=== PATIENT | male | born 1960 | race Caucasian/White ===

== ENCOUNTER 2019-11-07 09:55 | Inpatient (IN) | payer MEDICARE, MEDICAID, SELFPAY ==
--- NOTE | 2019-11-02 10:35 | ANES.PREANES ---
Pre-Anesthetic Assessment Pre-Anesthetic Assessment: Height/Weight: Height 1.65 m Weight 54.431 kg Proposed Procedure: Operation Date: 11/07/19 08:50 Proposed Procedures p Laparoscopic Sigmoidectomy poss open poss Colstomy(Not Applicable) - Shaun Argueta MD s Flex Sigmoidoscopy(Not Applicable) - Shaun Argueta MD Social: Social History: No alcohol and No tobacco Exam: Pre-Anes Outpt Exam: alert, oriented x 3, clear to auscultation bilaterally and regular rate & rhythm Airway: Submandibular: WNL Cervical ROM: WNL MP: 2 Dentition: Full History/ROS: No significant history except as noted Pulmonary: Pulmonary: None reported CV/HEM: CV/HEM: None reported : : None reported Hepatic: Hepatic: None reported GI: GI: None reported Metabolic: Metabolic: None reported Musc/skel: Musc/skel: OA/DJD Neuropsych: Neuropsych: None reported Anesthetic Plan: ASA status: II Anesthesia: Anesthesia Evaluation and MAC Risk of > 500 ml blood loss (7ml/kg in children): Yes, adequate IV access and fluids planned PFSH Anesthesia PFSH: Social History (Updated 11/02/19 @ 09:45 by Adele Jolly) Smoking and tobacco status: never smoked Alcohol intake: never Substance/Drug Use: never Caregiver/support person: Yes (guardian is Gunjan Reynoso (mother)) Lives independently: No Data Anesthesia Cardiac Studies: No Data to Display
[2019-11-07] VITALS (24 sets, daily range): BP systolic 133–196; BP diastolic 63–106; PULSE 58–81; RESP 12–20; TEMP 36.6–37.2; O2SAT 91–100
[2019-11-07] MEDS: sodium chloride 0.9% 1,000 ML 30 ML IV (07:58)
[2019-11-07] MEDS: heparin 5,000 unit/mL INJ 1 mL 2000 UNIT SUBCUT (08:09)
--- NOTE | 2019-11-07 08:24 | PM.HPUD ---
H&P update H&P Update: DATE OF SURGERY/PROCEDURE: 11/07/19 DATE H&P PERFORMED: 10/20/19 H&P UPDATE INFORMATION: H&P completed within last 30 days and No changes to prior documentation PREOP DIAGNOSIS: Sigmoid colon stricture PRIMARY INDICATION FOR PROCEDURE: Sigmoid colon stricture concerning for neoplasia PLANNED PROCEDURE: Operation Date: 11/07/19 08:20 Proposed Procedures p Laparoscopic Sigmoidectomy poss open poss Colstomy(Not Applicable) - Shaun Argueta MD s Flex Sigmoidoscopy(Not Applicable) - Shaun Argueta MD Full H&P Medications/Allergies: Current Medications: Current Medications Generic Name Dose Route Start Last Admin Trade Name Freq PRN Reason Stop Dose Admin Sodium Chloride 1,000 mls @ 30 ml s/hr 11/07/19 07:30 11/07/19 07:58 Sodium Chloride 0.9% IV 11/08/19 07:29 30 mls/hr .Q24H BENJAMIN Administration Perinent History: Social History: Social History Smoking and tobacco status: never smoked Alcohol intake: never Substance/Drug Use: never Caregiver/support person: Yes (guardian is Gunjan Reynoso (mother)) Lives independently: No
[2019-11-07] MEDS: lidocaine 2% INJ 20 mL INJECTION (09:40)
[2019-11-07 10:49] LABS: Basophils % 0.4 %; Eosinophils # 0.1 10^3/uL (0.0-0.8); Hematocrit 45.3 % (42.0-52.0); Lymphocytes # 1.2 10^3/uL (0.8-4.8); Lymphocytes % 16.9 %; Mean Corpuscular HGB Conc 33.1 g/dL (30.0-36.0); Mean Corpuscular Hemoglobin 32.5 pg (28.0-34.0); Mean Corpuscular Volume 98.1 fL (80-94); Mean Platelet Volume 10.8 fL (7.4-10.4); Monocytes # 0.5 10^3/uL (0.2-0.9); Monocytes % 6.6 %; Neutrophils # 5.1 10^3/uL (1.8-7.7); Neutrophils % 73.8 %; Nucleated Red Blood Cells % 0 %; Platelet Count 200 10^3/cmm (130-400); Red Blood Count 4.62 10^6/uL (4.1-5.3); Red Cell Distribution Width 12.5 % (12.1-15.1); White Blood Count 6.9 10^3/uL (4.0-10.0)
[2019-11-07 11:02] LABS: Anion Gap 13.5 (5-19); Blood Urea Nitrogen 13 mg/dL (6-20); Carbon Dioxide 24 mmol/L (22-29); Chloride 104 mmol/L (98-107); Glomerular Filtration Rate 99.3 mL/min (90-130); Glucose 88 mg/dL (74-109); Potassium 3.5 mmol/L (3.5-5.1); Sodium 138 mmol/L (136-145)
--- NOTE | 2019-11-07 12:17 | P.OP_ITS ---
Operative Report Date of procedure: 11/09/19 Preop Diagnosis: Rectosigmoid stricture Post-op diagnosis: same Post-op Findings: Desmoplastic reaction at the left lateral pelvic wall with the rectosigmoid segment Procedure Done: Laparoscopic sigmoid colectomy with colorectal anastomosis Bilateral tap block Specimens removed/disposition: 1-sigmoid colon suture uyen proximal 2-staple line 3-proximal donut 4-distal donut Surgeon: Shaun Argueta Pipelines Supervisor: Alicia Forbes Anesthesia: general (MULTIMEDIA PROJECT MANAGER [place]/Smart), other (Tap block) and none Estimated blood loss (mL): 20 IV fluids (mL): 1,200 Complications: No immediate complications Condition: stable Disposition: floor Brief History: This is a pleasant 59 years old gentleman with history of stricture of the sigmoid colon, different attempts with endoscopy were done were not successful, barium enema was done and showed a stricture neoplastic component cannot be ruled out. After thorough history physical examination and reviewing the chart and images with my personal interpretation further counseling the patient and his legal guardians,agreed to proceed with laparoscopic possible open sigmoid colon resection possible colostomy. Informed consent per chart Procedure: The patient was brought to the operating room and was placed in a supine position on the operating room table.General endotracheal anesthesia was induced.Time-out was done verifying the patient's name/date of /planned procedure and destination after the procedure, all were in agreement. SCDs confirmed to be functioning, preoperative antibiotics administered per protocol, and beta pranay protocol was confirmed The patient was then moved to a modified lithotomy position. A Garcia catheter was inserted revealing clear urine. The abdomen was prepped and draped in a sterile fashion. Started by longitudinal skin incision supraumbilical using a Duong trocar technique safe entry to the abdominal cavity was achieved verified by using 10 mm zero degree laparoscopy, switched to a 30? scope, a 12 mm trocar was inserted at the right lower direct visualization,followed by a 5 mm trocar was inserted at the right upper quadrant under direct visualization and another 5 mm trocar was inserted to the left side of the abdomen under direct visualization. Intra-abdominal adhesions were adhesio lysed and the left lower abdominal quadrant. I started by mobilizing the sigmoid colon through the line of Toldt using the harmonic scalpel device and the left ureter was identified there was severe desmoplastic reaction between the sigmoid colon and left ureter, dissection was done safely without injuring the left ureter. A sizable phlegmon without any evidence of pus was identified of the severely scarred sigmoid colon portion. I was able to identify and skeletonized the DONNA pedicle and 45 mm vascular GI load was applied to secure the DONNA pedicle as a high ligation to maximize the lymph node basins of the specimen. At that point I continued dissection and mobilizing the left side of the colon up to the splenic flexure, followed by that via the 12 mm trocar introduced and endoscopic stapler device using green load 45 mm and was angled in a way to divide the junction between the distal sigmoid and the healthy upper rectum, division was achieved after 2 loads of the green load as the sigmoid colon was thick at this point. At that point I created transverse incision at the left 5 mm trocar site were and the wound protection device was placed, I was able to deliver the distal sigmoid colon Inclusive for the diseased Rectosigmoid colon segment. Attention was deviated at the proximal colon were the staple line was taken off with Oz scissors and sent also for pathology.The colon was sized and a size 25 EEA stapler was decided upon.The anvil was sewn into the proximal sigmoid with a running suture of 3-0 Prolene and 3-0 Vicryl ,that part of the colon was dropped back into the abdominal cavity,.And a good seal was obtained by the wound protection device.Gloves were changed,at this point additional mobilization was obtained due to the adherence of the omentum to the proximal part of the colon to allow tension-free anastomosis.at that point my partner scrubbed in(Surgeon Pipelines Supervisor Dr Allen) and The EEA was introduced through the rectum by him and the EEA was opened through the distal staple line. The anvil was connected and was slowly screwed down until the 2 limbs of bowel were contacting each other with good orientation of the mesentery of the colon. The Surrounding structures were again confirmed to be out of the area and the EEA was fired.The EEA was removed and 2 solid colonic rings of tissue were found in the EEA.Both doughnuts as well as the proximal sigmoid staple line were sent to pathology.The pelvis was again irrigated and while some irrigation was still in the pelvis a flexible sigmoidoscope was used to inflate the distal colon via the rectum, having placed a long blade [place] bowel was clamped proximal to the staple line on the sigmoid. The colon filled very well and no air leaks were seen under a level of saline in the pelvis. Further irrigation and suction of abdomen and pelvis . No ongoing bleeding or other problems were seen anywhere in the abdomen. At that point I did place a eterez-xb-rlaaf 2-0 silk suture that was placed laparoscopically, onto the anterior aspect of the anastomosis to invaginate part of the staple line. Bilateral TAP (transversus abdominous plain peripheral nerve block )block using Exparel 20 mL Exparel 40 ml Normal saline 20 ml bupivacaine 0.25% 30 mL on each side injected 20 mL injected the port sites A final look laparoscopy showed no injuries or bleeding All trocars were taken out under direct visualization and closure of the left lateral incision was done in 2 layers using PDS and Vicryl sutures, as well as the supraumbilical trocar site was closed by Vicryl sutures and all trocar sites were closed by skin geri, dressing was applied, all wounds were thoroughly irrigated prior to closure. Counts of sponges,needles and instruments were completed at the end of the procedure. Garcia catheter was left in place Patient tolerated the procedure well and got extubated and was taken to the PACU area. I was present for the whole entire procedure. Due to medical necessity. Pipelines Supervisor surgeon is required to assist in this procedure in the form of; Introduced the EEA via the anus, and assist in performing colorectal anastomosis, followed by introduction of the flex sigmoidoscopy to rule out potential leak or bleeding.
--- NOTE | 2019-11-07 12:32 | SUR.OPER ---
0942 - Pt's family - Michelle_ notified of surgery start.
--- NOTE | 2019-11-07 12:33 | SUR.OPER ---
Ezra Martinez updated on surgery progress and pt status via her cell phone.
--- NOTE | 2019-11-07 12:33 | SUR.OPER ---
Marcelino Martinez updated on surgery progress and pt status via her cell phone
[2019-11-07] MEDS: morphine 4 mg/mL SDV 1 mL 2 MG IVP ×7 (12:35→20:47)
--- NOTE | 2019-11-07 13:34 | SUR.PHASEI ---
1223- RECEIVED PATIENT IN PACU FROM OR VIA [facility]. RESP ARE EVEN AND NONLABORED. SAT 99% WITH SIMPLE MASK AT 6LPM. HE IS AROUSABLE BUT DROWSY. ACUTE ABDOMINAL SITES X4 ARE DRY AND INTACT. HE REPORTS PAIN, MEDICATED PER CONCHIS PERRY. PERES CATHETER IS PATENT AND DRAINING VIA GRAVITY CLEAR YELLOW URINE. DENIES NAUSEA. 1258- UPDATED FAMILY STABLE PT STATUS 1305- TRANSFERRED PATIENT FROM PACU TO . RESP ARE EVEN AND NONLABORED. SAT 96% WITH ROOM AIR. HE IS AWAKE AND ALERT, RESTING WITH EYES CLOSED. ACUTE ABDOMINAL SITES ARE DRY AND INTACT. HE REPORTS ABDOMINAL PAIN IS A LITTLE BIT . HE STATES HE WOULD LIKE TO SEE HIS MOM AND DAD. FAMILY AT THE BEDSIDE FOR TRANSFER. TRANSITION OF CARE TO [facility] WEATH[facility]. VSS. FAMILY IN SECOND FLOOR WAITING AREA.
[2019-11-07] MEDS: famotidine 20 mg/2 mL INJ IVP (13:35)
[2019-11-07] MEDS: sodium chloride 0.9% 1,000 ML 100 ML IV (13:35)
--- NOTE | 2019-11-07 14:47 | PM.PACU ---
PACU note Post-Anesthesia Exam: awake Disposition: back to floor
[2019-11-07] MEDS: heparin 5,000 unit/mL INJ 1 mL 3000 UNIT SUBCUT (20:47)
[2019-11-08] VITALS (8 sets, daily range): BP systolic 132–157; BP diastolic 56–79; PULSE 62–70; RESP 16–20; TEMP 36.5–37.4; O2SAT 93–98
[2019-11-08] MEDS: morphine 4 mg/mL SDV 1 mL 2 MG IVP ×5 (01:30→18:11)
[2019-11-08] MEDS: famotidine 20 mg/2 mL INJ IVP ×2 (01:31→13:25)
[2019-11-08] MEDS: sodium chloride 0.9% 1,000 ML 100 ML IV ×2 (02:00→09:07)
[2019-11-08 02:03] LABS: Hematocrit 37.4 % (42.0-52.0); Hemoglobin 12.4 g/dL (11.7-16.6)
[2019-11-08 02:29] LABS: Blood Urea Nitrogen 20 mg/dL (6-20); Calcium 8.8 mg/Dl (8.6-10.0); Carbon Dioxide 22 mmol/L (22-29); Chloride 107 mmol/L (98-107); Glomerular Filtration Rate 86.7 mL/min (90-130); Glucose 122 mg/dL (74-109); Sodium 139 mmol/L (136-145)
--- NOTE | 2019-11-08 05:41 | P.PN_ITS ---
Subjective Subjective: Interval history: Patient overall is doing Good urine output Did not pass gas yet Vitals/I&O/Wt Last Vital Signs Temp 98.1 F 11/08/19 04:31 Pulse 63 11/08/19 04:31 Resp 16 11/08/19 04:54 BP 132/71 11/08/19 04:31 Pulse Ox 98 11/08/19 04:31 11/07/19 11/07/19 11/08/19 14:59 22:59 06:59 Intake Total 250 / 250 50 / 300 1100 / 1400 Output Total 425 / 425 450 / 875 700 / 1575 Balance -175 / -175 -400 / -575 400 / -175 Physical Exam Const: COMMON NORMALS: no apparent distress GENERAL APPEARANCE: cooperative ORIENTATION/CONSCIOUSNESS: Yes awake, Yes oriented to person, Yes oriented to place and Yes oriented to time HENMT: COMMON NORMALS: normocephalic HEAD & SCALP: normocephalic Eye: COMMON NORMALS: PERRL and no scleral icterus PUPIL: Yes PERRL Chest: COMMONS NORMALS: inspection of chest normal Resp: COMMON NORMALS: normal respiratory effort and clear to auscultation bilaterally AUSCULTATION: clear to auscultation bilaterally Cardio: COMMON NORMALS: S1 normal heart sound and S2 normal heart sound; negative for no murmurs HEART SOUNDS: S1 normal and S2 normal GI: COMMON NORMALS: soft to palpation; negative for no hepatosplenomegaly INSPECTION: Yes normal to inspection AUSCULTATION: Yes normoactive bowel sounds PALPATION: Yes soft, No firm, Yes tender (Mild tenderness at the incision site), No guarding, No rigid and No no hepatosplenomegaly Neuro: SENSORIUM/ORIENTATION: Yes oriented to person, Yes oriented to place and Yes oriented to time Psych: COMMON NORMALS: mental status grossly normal Skin: COMMON NORMALS: no rashes or lesions noted GENERAL SKIN EXAM: no rashes or lesions noted Urinary Catheter Management^: Garcia: Cath Placed During This Visit: no A&P Assessment and plan (1) S/P partial colectomy: Patient is postoperative day 1 status post laparoscopic sigmoid colectomy We will start the patient on popsicle Incentive spirometer every hour Awaiting bowel functions once the patient starts passing gas we will start him slowly on clear liquid diet Ambulation 3-4 times out of bed Maintain Garcia catheter for extensive pelvic dissection and close monitoring of urine output Status: Acute Code(s): Z90.49 - Acquired absence of other specified parts of digestive tract Attestations Medical Necessity Statement*: Medical necessity care is expected to cross 2 midnights Coding Level of Care Code Acute Varnishing Unit Tool Setter for John Fwolga Exam Problem Focused Diagnoses S/P partial colectomy Z90.49
[2019-11-08] MEDS: heparin 5,000 unit/mL INJ 1 mL 3000 UNIT SUBCUT ×2 (09:07→22:03)
--- NOTE | 2019-11-08 10:56 | PC.CHAP ---
Pastoral Care Encounter/Spiritual Assessment Type of Contact [] Declined vending mechanic visit [] Patient/Family/Request visit [] Outpatient visit [] Follow-up visit [] Physician referral [] Code/Alert [x] Routine visit [] Staff referral [] Actively dying [] Patient sleeping [x] Family support [] [] Out of room [] Palliative care [] [] Receiving care in room [] Pre-surgical visit [] Trauma [] Long length of stay [] ICU visit [] Other: Relational/Emotional Strength [x] Patient feels connected with others/family/visitors/staff [] Distress [] Loneliness/isolation [] Abandonment Spirituality of Patient [x] Person of Siomara [x] Attends Confucianist of their [place] [x] Believes in Prayer [] Reads Bible or Methodist materials [] There are Spiritual issues to be addressed Tribal Council Member Interventions [x] Prayer [x] Active listening [x] Non-anxious presence [x] Spiritual/emotional support [] Crisis/trauma care [] Spiritual counseling [] Bereavement support [] Provided bereavement packet [] Provided Bible/devotional materials [] Provided toy/stuffed animal, coloring book to patient or family member [x] Completed spiritual assessment [] Provided Communion [] Anointing/[place] [] Salvation [] Other: Impact on Illness or Injury [] Angry [] Fearful [] Anxious [] Often cries [] Exhaustion [] Unable to work [] Unable to attend lutheran [] Unable to walk/stand [] Unable to read [] Unable to drive [] Unable to eat/drink [] Unable to sleep [] Unable to be with family [] Other: Summary patielnt felling better sence operation Time spent with patient 15 min
--- NOTE | 2019-11-08 19:06 | PC.NURSE ---
PATIENT AMBULATED 3 TIMES TODAY. TOLERATED WELL. ACTIVE BOWEL SOUNDS. NEGATIVE FOR GAS AT THIS TIME.
[2019-11-09] VITALS (7 sets, daily range): BP systolic 139–167; BP diastolic 55–79; PULSE 62–71; RESP 18–24; TEMP 36.2–37.2; O2SAT 92–97
[2019-11-09] MEDS: famotidine 20 mg/2 mL INJ IVP ×2 (01:44→13:53)
[2019-11-09 04:29] LABS: Anion Gap 13.7 (5-19); Blood Urea Nitrogen 14 mg/dL (6-20); Carbon Dioxide 26 mmol/L (22-29); Chloride 102 mmol/L (98-107); Glomerular Filtration Rate 138.4 mL/min (90-130); Glucose 110 mg/dL (74-109); Potassium 3.7 mmol/L (3.5-5.1); Sodium 138 mmol/L (136-145)
[2019-11-09 04:36] LABS: Basophils % 0.1 %; Eosinophils % 0.2 %; Hematocrit 37.5 % (42.0-52.0); Hemoglobin 12.3 g/dL (11.7-16.6); Lymphocytes # 0.8 10^3/uL (0.8-4.8); Lymphocytes % 8.8 %; Mean Corpuscular HGB Conc 32.8 g/dL (30.0-36.0); Mean Corpuscular Hemoglobin 30.8 pg (28.0-34.0); Mean Platelet Volume 10.6 fL (7.4-10.4); Monocytes # 0.9 10^3/uL (0.2-0.9); Monocytes % 10.4 %; Neutrophils # 7.1 10^3/uL (1.8-7.7); Neutrophils % 80.3 %; Nucleated Red Blood Cells % 0 %; Platelet Count 161 10^3/cmm (130-400); Red Blood Count 3.99 10^6/uL (4.1-5.3); Red Cell Distribution Width 12.5 % (12.1-15.1); White Blood Count 8.8 10^3/uL (4.0-10.0)
--- NOTE | 2019-11-09 06:11 | PM.PN ---
Subjective Subjective: Interval history: Patient overall is doing Good urine output Patient is passing gas Vitals/I&O/Wt Last Vital Signs Temp 97.9 F 11/09/19 04:13 Pulse 69 11/09/19 04:13 Resp 24 H 11/09/19 04:13 BP 139/77 11/09/19 04:13 Pulse Ox 95 11/09/19 04:13 11/08/19 11/08/19 11/09/19 14:59 22:59 06:59 Intake Total 811.667 / 811.667 200 / 1011.667 0 / 1011.667 Output Total 2300 / 2300 Balance 811.667 / 811.667 -2100 / -1288.333 0 / -1288.333 Physical Exam Const: COMMON NORMALS: no apparent distress GENERAL APPEARANCE: cooperative ORIENTATION/CONSCIOUSNESS: Yes awake, Yes oriented to person, Yes oriented to place and Yes oriented to time HENMT: COMMON NORMALS: normocephalic HEAD & SCALP: normocephalic Eye: COMMON NORMALS: PERRL and no scleral icterus PUPIL: Yes PERRL Chest: COMMONS NORMALS: inspection of chest normal Resp: COMMON NORMALS: normal respiratory effort and clear to auscultation bilaterally AUSCULTATION: clear to auscultation bilaterally Cardio: COMMON NORMALS: S1 normal heart sound and S2 normal heart sound; negative for no murmurs HEART SOUNDS: S1 normal and S2 normal GI: COMMON NORMALS: soft to palpation; negative for no hepatosplenomegaly INSPECTION: Yes normal to inspection AUSCULTATION: Yes normoactive bowel sounds PALPATION: Yes soft, No firm, Yes tender (Mild tenderness at the incision site), No guarding, No rigid, No no hepatosplenomegaly and Yes other (Dressing was taken down by me incisions are clean dry and intact and skin geri in place) : PENIS: other (Garcia catheter in place) Neuro: SENSORIUM/ORIENTATION: Yes oriented to person, Yes oriented to place and Yes oriented to time Psych: COMMON NORMALS: mental status grossly normal Skin: COMMON NORMALS: no rashes or lesions noted GENERAL SKIN EXAM: no rashes or lesions noted Urinary Catheter Management^: Garcia: Cath Placed During This Visit: no Data : 11/09/19 03:25 01/17/20 03:43 A&P Assessment and plan (1) S/P partial colectomy: Patient is postoperative day 2 status post laparoscopic sigmoid colectomy We will start the patient on clear liquid diet Incentive spirometer every hour DC Garcia cath Ambulation 3-4 times out of bed Status: Acute Code(s): Z90.49 - Acquired absence of other specified parts of digestive tract Attestations Medical Necessity Statement*: Medical necessity care is expected to cross 2 midnights Coding Level of Care Code Acute Operations And Maintenance Technician for John Fwd Exam Problem Focused Diagnoses S/P partial colectomy Z90.49
[2019-11-09] MEDS: sodium chloride 0.9% 1,000 ML 100 ML IV ×2 (06:46→16:29)
[2019-11-09] MEDS: heparin 5,000 unit/mL INJ 1 mL 3000 UNIT SUBCUT ×2 (09:43→21:15)
[2019-11-09 19:39] LABS: Anion Gap 13.7 (5-19); Blood Urea Nitrogen 12 mg/dL (6-20); Carbon Dioxide 27 mmol/L (22-29); Chloride 101 mmol/L (98-107); Glomerular Filtration Rate 170.8 mL/min (90-130); Glucose 139 mg/dL (74-109); Potassium 3.7 mmol/L (3.5-5.1); Sodium 138 mmol/L (136-145)
[2019-11-10] MEDS: famotidine 20 mg/2 mL INJ IVP (00:07)
[2019-11-10 01:13] VITALS: BP 155/77; PULSE 58; RESP 20; TEMP 36.9; O2SAT 96
[2019-11-10 03:50] VITALS: BP 138/79; PULSE 61; RESP 20; TEMP 36.9; O2SAT 97
[2019-11-10 04:13] LABS: Anion Gap 14.5 (5-19); Calcium 9.4 mg/Dl (8.6-10.0); Carbon Dioxide 27 mmol/L (22-29); Chloride 101 mmol/L (98-107); Glomerular Filtration Rate 170.8 mL/min (90-130); Glucose 125 mg/dL (74-109); Potassium 3.5 mmol/L (3.5-5.1); Sodium 139 mmol/L (136-145)
[2019-11-10 05:04] LABS: Blood Urea Nitrogen 12 mg/dL (6-20)
--- NOTE | 2019-11-10 06:47 | PM.PN ---
Subjective Subjective: Interval history: Patient overall is doing Good urine output Patient is passing gas and bowel movements Tolerating well p.o. Vitals/I&O/Wt Last Vital Signs Temp 98.4 F 11/10/19 03:50 Pulse 61 11/10/19 03:50 Resp 20 H 11/10/19 03:50 BP 138/79 11/10/19 03:50 Pulse Ox 97 11/10/19 03:50 11/09/19 11/09/19 11/10/19 14:59 22:59 06:59 Intake Total 1211.667 / 1211.667 0 / 1211.667 Output Total 750 / 750 575 / 1325 250 / 1575 Balance -750 / -750 636.667 / -113.333 -250 / -363.333 Physical Exam Const: COMMON NORMALS: no apparent distress GENERAL APPEARANCE: cooperative ORIENTATION/CONSCIOUSNESS: Yes awake, Yes oriented to person, Yes oriented to place and Yes oriented to time HENMT: COMMON NORMALS: normocephalic HEAD & SCALP: normocephalic Eye: COMMON NORMALS: PERRL and no scleral icterus PUPIL: Yes PERRL Chest: COMMONS NORMALS: inspection of chest normal Resp: COMMON NORMALS: normal respiratory effort and clear to auscultation bilaterally AUSCULTATION: clear to auscultation bilaterally Cardio: COMMON NORMALS: S1 normal heart sound and S2 normal heart sound; negative for no murmurs HEART SOUNDS: S1 normal and S2 normal GI: COMMON NORMALS: soft to palpation; negative for no hepatosplenomegaly INSPECTION: Yes normal to inspection AUSCULTATION: Yes normoactive bowel sounds PALPATION: Yes soft, No firm, Yes tender (Mild tenderness at the incision site), No guarding, No rigid, No no hepatosplenomegaly and Yes other ( incisions are clean dry and intact and skin geri in place) : PENIS: other (Garcia catheter in place) Neuro: SENSORIUM/ORIENTATION: Yes oriented to person, Yes oriented to place and Yes oriented to time Psych: COMMON NORMALS: mental status grossly normal Skin: COMMON NORMALS: no rashes or lesions noted GENERAL SKIN EXAM: no rashes or lesions noted Urinary Catheter Management^: Garcia: Cath Placed During This Visit: no Data : 11/09/19 03:25 01/17/20 03:43 A&P Assessment and plan (1) S/P partial colectomy: Patient is postoperative day 3 status post laparoscopic sigmoid colectomy Incentive spirometer every hour Ambulation 3-4 times out of bed Advance to full liquid diet and start protein shakes Patient continues to do well will plan to discharge home today Status: Acute Code(s): Z90.49 - Acquired absence of other specified parts of digestive tract Attestations Medical Necessity Statement*: Medical necessity care is expected to cross 2 midnights Coding Level of Care Code Acute Gas Meter Reader for John Fwolga Exam Problem Focused Diagnoses S/P partial colectomy Z90.49
[2019-11-10 07:05] VITALS: BP 159/87; PULSE 68; RESP 16; TEMP 36.3; O2SAT 95
[2019-11-10 07:12] VITALS: RESP 16
[2019-11-10] MEDS: heparin 5,000 unit/mL INJ 1 mL 3000 UNIT SUBCUT (08:09)
--- NOTE | 2019-11-10 10:12 | PC.SOCIAL ---
IMM Update Pg 2 of IMM given and explained to patient and family, who voiced understanding. Signed, dated, and timed, and placed in chart. Copy provided to patient.
[2019-11-10 11:12] VITALS: BP 150/93; PULSE 66; RESP 18; TEMP 36.6; O2SAT 97
--- NOTE | 2019-11-10 11:30 | PM.DCS ---
Discharge Providers Date of Admission: 11/07/19 09:55 Date of Discharge: 11/10/19 Attending Provider at Admission: Shaun Argueta MD Attending Provider at Discharge: Shaun Argueta MD Diagnoses at Discharge Discharge Diagnosis (1) S/P partial colectomy: Status: Resolved Problem details: We will plan to discharge patient home today Reason for Visit Reason for Visit: Reason For Visit: Stricture of Sigmoid Colon Hospital Course Discharge Summary: This is a pleasant 59 years old gentleman had developed sigmoid colon stricture, patient undergone uneventful laparoscopic sigmoid colectomy, continue to have stable vital signs and good urine output, started passing gas and was started on oral intake and tolerated it well. Overall patient is doing well, tolerating by mouth intake, stable vital signs, good urine output after taking the Garcia catheter out Patient is conscious alert oriented X3 BMI 20 Head and neck examination PERRLA no masses no cervical lymphadenopathy no jaundice Cardiac examination audible S1-S2 no murmurs no gallops no arrhythmias Chest is clear bilateral,abscence of Rhonchi or wheezes,no surgical emphysema Abdomen nontender except for mild tenderness at the incision site nondistended soft no organomegaly guarding or rigidity/no signs of peritonitis Incisions are clean dry and Extremities no cyanosis no clubbing no edema Plan to discharge patient home today and follow-up at the surgery office in a week Physical Exam Const: COMMON NORMALS: no apparent distress and oriented x3 GENERAL APPEARANCE: cooperative ORIENTATION/CONSCIOUSNESS: Yes awake, Yes oriented to person, Yes oriented to place and Yes oriented to time HENMT: COMMON NORMALS: normocephalic HEAD & SCALP: normocephalic Eye: COMMON NORMALS: PERRL and no scleral icterus PUPIL: Yes PERRL Lymph: LYMPHATIC: no lymphadenopathy noted Chest: COMMONS NORMALS: inspection of chest normal Resp: COMMON NORMALS: normal respiratory effort and clear to auscultation bilaterally AUSCULTATION: clear to auscultation bilaterally Cardio: COMMON NORMALS: S1 normal heart sound and S2 normal heart sound; negative for no murmurs HEART SOUNDS: S1 normal and S2 normal GI: COMMON NORMALS: soft to palpation; negative for no hepatosplenomegaly INSPECTION: Yes normal to inspection PALPATION: Yes soft, No firm, Yes tender (Mild tenderness at the incision sites), No guarding, No rigid and No no hepatosplenomegaly Neuro: COMMON NORMALS: oriented x3 SENSORIUM/ORIENTATION: Yes oriented to person, Yes oriented to place and Yes oriented to time Psych: COMMON NORMALS: mental status grossly normal Skin: COMMON NORMALS: no rashes or lesions noted GENERAL SKIN EXAM: no rashes or lesions noted Urinary Catheter Management^: Garcia: Cath Placed During This Visit: no Discharge Data Data Completed and Pending: Completed Studies During Hospitalization Category Date Time Status Pathology: Surgic al [PTH] Routine Pth 11/07/19 12:08 Completed Pending at discharge Category Date Time Status ES surgery / GI i mages Routine Exams 11/07/19 07:53 Taken Labs from last 24 hours 11/10/19 11/09/19 03:43 19:20 Sodium 139 138 Potassium 3.5 3.7 Chloride 101 101 Carbon Dioxide 27 27 Anion Gap 14.5 13.7 BUN 12 12 Creatinine 0.5 L 0.5 L GFR Calculation 170.8 H 170.8 H Glucose 125 H 139 H Calcium 9.4 9.0 Vitals: Last Vital Signs Temp 97.4 F L 11/10/19 07:05 Pulse 68 11/10/19 07:05 Resp 16 11/10/19 07:12 BP 159/87 11/10/19 07:05 Pulse Ox 95 11/10/19 07:05 Discharge Plan Discharge Patient Disposition: Home, Self-Care Condition: Stable Prescriptions: [place] 5-325 mg tablet 1 tab PO Q6H PRN (Reason: pain) Qty: 28 RF: 0 Continued cyanocobalamin (vitamin B-12) [Vitamin B-12] 1,000 mcg Tablet 1,000 mcg PO DAILY RF: 0 tamsulosin 0.4 mg Capsule 0.4 mg PO DAILY RF: 0 pantoprazole 40 mg tablet,delayed release (DR/EC) 40 mg PO DAILY RF: 0 cholecalciferol (vitamin D3) [Vitamin D3] 1,000 unit Capsule 1,000 unit PO DAILY RF: 0 Discharge Orders: Discharge Order (Routine); Ordered 11/10/19 Ordered By: Shaun Argueta Referrals: Shaun Argueta MD [Physician] - 11/16/19 9:30 am () Discharge Diet: Advance as tolerated Activity Restrictions/Additional Instructions: 1. Patient can shower after 48 hours from surgery 2. Keep incisions clean, skin geri will be removed at the next office visit 3. Advance diet as tolerated, avoid constipation, Metamucil twice daily as needed 4. Do lift more than 5 pounds first 2 weeks after surgery and not more than 25 pounds 6 to 8 weeks after surgery. 5. Do not operate heavy machinery or drive while using pain medications. 6. Advised to return to ER or contact my office if there are any signs of infection like, increasing pain, fevers, chills, redness or drainage of pus. Discharge Attestations Time Spent in Discharge Care*: less than 30 min Quality Metrics Clinical Quality Measures During this hospital stay, did patient experience: None Coding Level of Care Code Acute Application Integrator for Chg Fwd Exam Problem Focused Diagnoses S/P partial colectomy Z90.49 Time Spent (min) 10
[2019-11-10 11:35] VITALS: PULSE 81; RESP 16; TEMP 36.3; O2SAT 95
== END 2019-11-10 12:21 | disposition home or self-care (01) | DRG 331 ==
LOC: MEDSURG 09:55
PROVIDERS: Nurse Anesthetist, Certified Registered; Admitting Provider Surgery; Family Provider Nurse Practitioner; Visit Provider Surgery
PROC: 0DTN4ZZ Resection of Sigmoid Colon, Percutaneous Endoscopic Approach (ICD-10-PCS; CPT 44204; principal; 2019-11-07 08:10)
PROC: 0DJD8ZZ Inspection of Lower Intestinal Tract, Via Natural or Artificial Opening Endoscopic (ICD-10-PCS; CPT 45330; 2019-11-07 08:10)
DX: K56.699 Other intestinal obstruction unspecified as to partial versus complete obstruction (principal); K21.9 Gastro-esophageal reflux disease without esophagitis; R62.50 Unspecified lack of expected normal physiological development in childhood; Z79.899 Other long term (current) drug therapy
CPT/HCPCS: 12345; 36415; 80048; 85014; 85018; 85025; 88309; 96372; 96375; C9290; J0131; J0694; J1100; J1644; J2001; J2270; J2405; J2704; J2710; J2765; J3010; J3490; J7030

== ENCOUNTER → 2021-01-31 08:31 | Outpatient (BNVA) | payer MEDICARE, MEDICAID, SELFPAY | PROVIDERS: Family Provider Nurse Practitioner; Visit Provider Surgery | DX: Z20.822 Contact with and (suspected) exposure to COVID-19 (principal) | CPT/HCPCS: 87635 ==

== ENCOUNTER 2021-02-05 06:09 | Day surgery (SDC) | payer MEDICARE, MEDICAID, SELFPAY ==
[2021-02-03 09:25] VITALS: BMI 21.4
--- NOTE | 2021-02-05 06:29 | W.PM.OPSFHP ---
Same Day Surgery H&P Indication for Procedure/HPI DATE OF PROCEDURE: February 05, 2021 CHIEF COMPLAINT/INDICATIONFOR SURGICAL PROCEDURE: Screening colonoscopy PREOP DIAGNOSIS: Screening colonoscopy PLANNED PROCEDRUE: Operation Date: 02/05/21 07:30 Proposed Procedures p Colonoscopy 45812 K57.92(Not Applicable) - Shaun Argueta MD Patient comes today escorted by his father. Patient is a status post laparoscopic sigmoid colectomy and colorectal anastomosis for obstructive sigmoid colon pathology. Patient undergone surgery November 09, 2019 by me. Patient denies any signs or symptoms of bowel obstruction as of the obstructive nature of the colon patient never had a formal colonoscopy. 02/05/2021 interval history Patient comes today for screening colonoscopy ROS All systems have been reviewed negative except as per the above or per problem list. Medications/Allergies* Home Medications Medication Instructions Recorded Confirmed Type cholecalciferol (vitamin D3) 1,000 unit PO DAILY 11/02/19 02/03/21 History [Vitamin D3] cyanocobalamin (vitamin B-12) 1,000 mcg PO DAILY 11/02/19 02/03/21 History [Vitamin B-12] pantoprazole 40 mg PO DAILY 11/02/19 02/03/21 History tamsulosin 0.4 mg PO DAILY 11/02/19 02/03/21 History Allergies/Adverse Reactions Allergy/AdvReac Type Severity Reaction Status Date / Time No Known Allergies Allergy Verified 02/05/21 06:30 Pertinent History/Comorbid Conditions* Medical History (Updated 12/01/19 @ 07:54 by Shaun Argueta MD) Developmental delay Diverticulitis Gastroesophageal reflux Surgical History (Updated 11/17/19 @ 08:02 by Shaun Argueta MD) Sigmoid stricture Family History (Updated 11/16/19 @ 08:38 by Gerda Smith RN) Denies family history of Anesthesia complication Bleeding disorder Social History Smoking and tobacco status: never smoked Alcohol intake: never Caregiver/support person: Yes (guardian is Gunjan Reynoso (mother)) Lives independently: No Pertinent Exam Findings alert, oriented x 3, clear to auscultation bilaterally, regular rate & rhythm and procedure specific exam findings (Abdominal examination nontender nondistended soft) Recommendations Surgery/Procedure today (Screening colonoscopy) Other Plans: Plan of care; After thorough history and physical examination and reviewing the chart, plan to perform screening colonoscopy. I discussed with the patient in details the risks,benefits,alternatives and indications.The risk of aspiration, bleeding, soft tissue injury, perforation of the colon and other potential concomitant complications were explained to the patient in details,also the potential need for Laproscoy/Laparotomy to repair any related complications including but not limited to colectomy and or Closotomy.The patient understood this well and did agree to proceed. Rationale was carefully and clearly discussed with the patient.Appropriate informed consent have been reviewed and signed All questions have been answered and all concerns have been addressed to patient's satisfaction. Verbal and written Instructions were given to the patient for colonoscopy prep Coding Level of Care Code Acute Coppersmith Helper for John Patel
[2021-02-05 06:36] VITALS: BP 151/88; PULSE 62; RESP 18; TEMP 36.3; O2SAT 98
[2021-02-05] MEDS: sodium chloride 0.9% 1,000 ML 30 ML IV (06:58)
[2021-02-05 07:55] VITALS: BP 127/60; PULSE 61; RESP 16; TEMP 36.1; O2SAT 98
[2021-02-05 08:16] VITALS: BP 133/68; PULSE 53; RESP 18; O2SAT 99
--- NOTE | 2021-02-05 11:54 | ANES.PREANE2 ---
Pre-Anesthetic Assessment Pre-Anesthetic Assessment: Height/Weight: Height 1.65 m Weight 58.513 kg Temp Pulse Resp BP Pulse Ox 97 F L 53 L 18 133/68 99 02/05/21 07:55 02/05/21 08:16 02/05/21 08:16 02/05/21 08:16 02/05/21 08:16 Preop Diagnosis: Screening colonoscopy Proposed Procedure: Operation Date: 02/05/21 07:30 Proposed Procedures p Colonoscopy 68261 K57.92(Not Applicable) - Shaun Argueta MD Was Beta Josey taken within 24 hours: N/A Was Clonidine taken within 24 hours: N/A Last intake: Intake Last Liquid Date 02/04/21 Last Liquid Time 21:00 Last Solid Date 02/03/21 Last Solid Time 18:00 Social: Social History: No alcohol and No tobacco Exam: Pre-Anes Outpt Exam: alert, clear to auscultation bilaterally and regular rate & rhythm Airway: Submandibular: WNL Cervical ROM: WNL MP: 1 History/ROS: No significant complaints Pulmonary: Pulmonary: None reported CV/HEM: CV/HEM: None reported : : None reported Hepatic: Hepatic: None reported GI: GI: GERD Metabolic: Metabolic: None reported Musc/skel: Musc/skel: None reported Neuropsych: Comments: Cerebral Palsy Anesthetic Plan: ASA status: 3 Anesthesia: MAC Other: Consent given by Gunjan malin [facility] Anesthesia PFSH: Medical History Developmental delay Diverticulitis Gastroesophageal reflux Surgical History Sigmoid stricture Family History Denies family history of Anesthesia complication Bleeding disorder Social History Smoking and tobacco status: never smoked Alcohol intake: never Caregiver/support person: Yes (guardian is Gunjan Reynoso (mother)) Lives independently: No Data Anesthesia Cardiac Studies: No Data to Display
--- NOTE | 2021-02-05 11:57 | ANE.PACU2 ---
Inpatient post-anesthesia follow up: Airway intact: Yes Vital signs: Temperature 97 F Pulse Rate 53 Respiratory Rate 18 Blood Pressure 133/68 Pulse Oximetry 99 Oxygen Delivery Me thod Room Air Oxygen Flow Rate Fraction of Inspir ed Oxygen Hydration adequate: Yes Nausea and vomiting: No Pain level: 1 Mental status: Baseline
== END 2021-02-05 08:28 | disposition home or self-care (01) ==
PROVIDERS: PCP Family Medicine; Visit Provider Surgery
PROC: 0DJD8ZZ Inspection of Lower Intestinal Tract, Via Natural or Artificial Opening Endoscopic (ICD-10-PCS; CPT 45378; principal; 2021-02-05 07:30)
DX: Z12.11 Encounter for screening for malignant neoplasm of colon (principal); K57.30 Diverticulosis of large intestine without perforation or abscess without bleeding; R62.50 Unspecified lack of expected normal physiological development in childhood; K21.9 Gastro-esophageal reflux disease without esophagitis; G80.9 Cerebral palsy, unspecified
CPT/HCPCS: 45378; J2704; J7030

== ENCOUNTER 2021-07-24 11:18 | Outpatient (CLI) | payer MEDICARE, MEDICAID, SELFPAY ==
[2021-07-24] MEDS: iohexol 300 mg/mL 50 mL Btl PO (11:48)
[2021-07-24 12:32] LABS: Blood Urea Nitrogen 19 mg/dL (8-23)
[2021-07-24] MEDS: iohexol 300 mg/mL 100 mL Btl IV (13:02)
--- NOTE | 2021-07-24 13:30 | CT_ITS ---
WS: [id number] CT ABDOMEN PELVIS TECHNIQUE: Contrast-enhanced CT of the abdomen and pelvis with coronal and sagittal reformatted image s. CLINICAL INFORMATION: R19.7 - Diarrhea, unspecified COMPARISON: CT 6 and DLP: 903.[address] scans at [facility] use at least one of these dose optimization techniques: automated e xposure control; mA and/or kV adjustment per patient size (includes targeted exams where dose is matc hed to clinical indication); or iterative reconstruction. FINDINGS: Some images degraded by breathing motion artifact Evidence of prior partial sigmoidectomy.Mild diffuse wall thickening with submucosal enhancement invo lving the distal sigmoid colon extending to the rectum. Recommend correlation for distal colitis and proctitis. In addition, there is asymmetric nodular wall thickening involving the distal sigmoid colo n and rectum with associated luminal narrowing. Neoplasm is not excluded and recommend further evalua tion with colonoscopy/sigmoidoscopy. Diffuse fatty infiltration of the liver. Normal portal vein and splenic vein. Normal spleen. Normal G E junction. Emphysematous changes in the lung bases. Cavernous hemangioma in the dome of the liver measuring 2.0 cm unchanged from previous. Gallbladder i s contracted. Normal spleen. Adrenal glands are normal. Normal renal parenchymal enhancement. No hydr onephrosis. A few incidental renal cysts. Normal pancreas. Normal caliber abdominal aorta. Aortic ca lcification. Calcified enlarged prostate measuring 4.5 CM. Mild diffuse bladder wall thickening can be seen with b ladder outlet obstruction. Normal caliber abdominal aorta. No periaortic or peritoneal lymphadenopathy. No pelvic lymphadenopath y. No inguinal lymphadenopathy. Degenerative disc disease worse L4-L5 and L5-S1 with disc osteophyte complexes. Mild to moderate central canal stenosis L4-5. Lumbar curve. CT/CT abdomen pelvis w con* [id number] IMPRESSION: 1. Prior postoperative changes partial sigmoidectomy. 2. Mild diffuse wall thickening with submucosal enhancement involving the dist al sigmoid colon extending to the rectum. Recommend correlation for distal coli tis/proctitis. 3. In addition, areas of asymmetric nodular wall thickening involving the dist al sigmoid colon and rectum with associated rectal luminal narrowing. Neoplasm is not excluded and recommend further evaluation with colonoscopy/sigmoidoscopy . 4. Enlarged calcified prostate with evidence of bladder outlet obstruction. Re commend correlation PSA. 5. Mild diffuse fatty infiltration liver. 6. Stable 2 cm hemangioma in the dome of the liver. 7. Normal caliber abdominal aorta. 8. Moderate spondylitic changes lumbar spine with disc space narrowing worse a t L4-L5 and L5-S1.
== END 2021-07-24 11:19 | disposition home or self-care (01) ==
PROVIDERS: PCP Family Medicine; Visit Provider Surgery
DX: R19.7 Diarrhea, unspecified (principal); Z90.49 Acquired absence of other specified parts of digestive tract; D18.09 Hemangioma of other sites; N40.0 Benign prostatic hyperplasia without lower urinary tract symptoms; K76.0 Fatty (change of) liver, not elsewhere classified
CPT/HCPCS: 74177; 82565; 84520; Q9967

== ENCOUNTER → 2021-08-22 08:46 | Outpatient (BNVA) | payer MEDICARE, MEDICAID, SELFPAY | PROVIDERS: PCP Family Medicine; Visit Provider Surgery | DX: Z11.52 Encounter for screening for COVID-19 (principal); Z20.822 Contact with and (suspected) exposure to COVID-19 | CPT/HCPCS: 87635 ==

== ENCOUNTER 2021-08-27 07:04 | Day surgery (SDC) | payer MEDICARE, MEDICAID, SELFPAY ==
[2021-08-27 07:37] VITALS: BP 144/72; PULSE 70; RESP 18; TEMP 36.9; O2SAT 98
--- NOTE | 2021-08-27 07:41 | W.PM.OPSFHP ---
Same Day Surgery H&P Indication for Procedure/HPI DATE OF PROCEDURE: August 27, 2021 CHIEF COMPLAINT/INDICATIONFOR SURGICAL PROCEDURE: Bloated PREOP DIAGNOSIS: Diagnosed colonoscopy PLANNED PROCEDRUE: Operation Date: 08/27/21 08:30 Proposed Procedures p Colonoscopy 53883 R19.7(Not Applicable) - Shaun Argueta MD 07/17/2021 Patient comes today with concerns of anterior abdominal wall hernia. Patient is well-known to me as he did have a laparoscopic sigmoid colectomy back in November 07, 2019. And overall did well and had recent colonoscopy in January 2021 that showed scattered diverticuli without any other significant findings. Apparently patient's mom is concerned about a bulge of the patient's abdominal wall and patient comes today for further evaluation and there is history about potential significant change in bowel habits although the patient denies that except for some on and off diarrhea. Patient comes today escorted by his father and history is limited. Interim history 08/27/2021 Based on the abnormal findings of the CT scan and preceded by patient's history of bloating we will plan to perform a diagnostic colonoscopy today CT scan of the abdomen pelvis did show on 07/24/2021 1. Prior postoperative changes partial sigmoidectomy. 2. Mild diffuse wall thickening with submucosal enhancement involving the distal sigmoid colon extending to the rectum. Recommend correlation for distal colitis/proctitis. 3. In addition, areas of asymmetric nodular wall thickening involving the distal sigmoid colon and rectum with associated rectal luminal narrowing. Neoplasm is not excluded and recommend further evaluation with colonoscopy/sigmoidoscopy. 4. Enlarged calcified prostate with evidence of bladder outlet obstruction. Recommend correlation PSA. 5. Mild diffuse fatty infiltration liver. 6. Stable 2 cm hemangioma in the dome of the liver. 7. Normal caliber abdominal aorta. 8. Moderate spondylitic changes lumbar spine with disc space narrowing worse at L4-L5 and L5-S1. ROS All systems have been reviewed negative except as per the above or per problem list Medications/Allergies* Home Medications Medication Instructions Recorded Confirmed Type cholecalciferol (vitamin D3) 1,000 unit PO DAILY 11/02/19 08/22/21 History [Vitamin D3] cyanocobalamin (vitamin B-12) 1,000 mcg PO DAILY 11/02/19 08/22/21 History [Vitamin B-12] pantoprazole 40 mg PO DAILY 11/02/19 08/22/21 History tamsulosin 0.4 mg PO DAILY 11/02/19 08/22/21 History Allergies/Adverse Reactions Allergy/AdvReac Type Severity Reaction Status Date / Time No Known Allergies Allergy Verified 08/22/21 14:26 Pertinent History/Comorbid Conditions* Medical History (Updated 12/01/19 @ 07:54 by Shaun Argueta MD) Developmental delay Diverticulitis Gastroesophageal reflux Surgical History (Updated 11/17/19 @ 08:02 by Shaun Argueta MD) Sigmoid stricture Family History (Updated 11/16/19 @ 08:38 by Gerda Smith RN) Denies family history of Anesthesia complication Bleeding disorder Social History Smoking and tobacco status: never smoked Alcohol intake: never Caregiver/support person: Yes (guardian is Gunjan Reynoso (mother)) Lives independently: No Pertinent Exam Findings alert, oriented x 3, clear to auscultation bilaterally, regular rate & rhythm and procedure specific exam findings (Abdominal examination nontender nondistended soft) Recommendations Surgery/Procedure today (Colonoscopy with possible biopsy) Other Plans: Plan of care; After thorough history and physical examination and reviewing the chart, plan to perform diagnostic colonoscopy. I discussed with the patient in details the risks,benefits,alternatives and indications.The risk of aspiration, bleeding, soft tissue injury, perforation of the colon and other potential concomitant complications were explained to the patient in details,also the potential need for Laproscoy/Laparotomy to repair any related complications including but not limited to colectomy and or Closotomy.The patient understood this well and did agree to proceed. Rationale was carefully and clearly discussed with the patient.Appropriate informed consent have been reviewed and signed All questions have been answered and all concerns have been addressed to patient's satisfaction. Verbal and written Instructions were given to the patient for colonoscopy prep Coding Level of Care Code Acute Pasteurizing Machine Operator for John Patel
[2021-08-27] MEDS: sodium chloride 0.9% 1,000 ML 30 ML IV (07:52)
--- NOTE | 2021-08-27 08:25 | ANES.PREANE2 ---
Pre-Anesthetic Assessment Pre-Anesthetic Assessment: Height/Weight: Height 1.65 m Weight 54.431 kg Temp Pulse Resp BP Pulse Ox 98.4 F 70 18 144/72 98 08/27/21 07:37 08/27/21 07:37 08/27/21 07:37 08/27/21 07:37 08/27/21 07:37 Preop Diagnosis: Bloating and abnormal CT scan images Proposed Procedure: Operation Date: 08/27/21 08:30 Proposed Procedures p Colonoscopy 11566 R19.7(Not Applicable) - Shaun Argueta MD Was Beta Josey taken within 24 hours: N/A Was Clonidine taken within 24 hours: N/A Last intake: Intake Last Liquid Date 08/26/21 Last Liquid Time 21:00 Last Solid Date 08/25/21 Last Solid Time 12:00 Social: Social History: No alcohol and No tobacco Exam: Pre-Anes Outpt Exam: alert and oriented x 3 Airway: Submandibular: WNL Cervical ROM: WNL MP: 1 Dentition: Full History/ROS: No significant history except as noted Pulmonary: Pulmonary: None reported CV/HEM: CV/HEM: None reported : : None reported Hepatic: Hepatic: None reported GI: GI: None reported Metabolic: Metabolic: None reported Musc/skel: Musc/skel: None reported Neuropsych: Neuropsych: None reported Anesthetic Plan: ASA status: 2 Anesthesia: Anesthesia Evaluation and MAC Risk of > 500 ml blood loss (7ml/kg in children): No Meds/Allergies Current Medications: Current Medications Generic Name Dose Route Start Last Admin Trade Name Freq PRN Reason Stop Dose Admin Sodium Chloride 1,000 mls @ 30 ml s/hr 08/27/21 07:15 08/27/21 07:52 Sodium Chloride 0.9% IV 08/28/21 07:14 30 mls/hr .Q24H BENJAMIN Administration PFSH Anesthesia PFSH: Medical History Developmental delay Diverticulitis Gastroesophageal reflux Surgical History Sigmoid stricture Family History Denies family history of Anesthesia complication Bleeding disorder Social History Smoking and tobacco status: never smoked Alcohol intake: never Caregiver/support person: Yes (guardian is Gunjan Reynoso (mother)) Lives independently: No Data Anesthesia Cardiac Studies: No Data to Display
[2021-08-27 08:58] VITALS: BP 102/58; PULSE 55; RESP 16; TEMP 36.7; O2SAT 97
[2021-08-27 09:12] VITALS: BP 132/73; PULSE 67; RESP 16; O2SAT 95
--- NOTE | 2021-08-27 09:17 | PC.NURSE ---
Pt and father given discharge instructions including follow up appointment, informational pamphlets, and 360 Resolution clip card with MRI info and anatomical location of placement.
--- NOTE | 2021-08-27 14:30 | ANE.PACU2 ---
Inpatient post-anesthesia follow up: Airway intact: Yes Vital signs: Temperature 98.1 F Pulse Rate 67 Respiratory Rate 16 Blood Pressure 132/73 Pulse Oximetry 95 Oxygen Delivery Me thod Room Air Oxygen Flow Rate Fraction of Inspir ed Oxygen Hydration adequate: Yes Nausea and vomiting: No Pain level: 2 Mental status: Baseline
== END 2021-08-27 09:33 | disposition home or self-care (01) ==
PROVIDERS: PCP Family Medicine; Visit Provider Surgery
PROC: 0DJD8ZZ Inspection of Lower Intestinal Tract, Via Natural or Artificial Opening Endoscopic (ICD-10-PCS; CPT 45378; principal; 2021-08-27 08:30)
DX: R14.0 Abdominal distension (gaseous) (principal); D12.2 Benign neoplasm of ascending colon; K57.30 Diverticulosis of large intestine without perforation or abscess without bleeding; K21.9 Gastro-esophageal reflux disease without esophagitis; Z98.0 Intestinal bypass and anastomosis status; Z90.49 Acquired absence of other specified parts of digestive tract; Z87.19 Personal history of other diseases of the digestive system
CPT/HCPCS: 45385; 88305; 96360; J2704; J7030

== ENCOUNTER → 2022-03-11 08:45 | Outpatient (BNVA) | payer MEDICARE, MEDICAID, SELFPAY | PROVIDERS: PCP Family Medicine; Visit Provider Surgery | DX: R19.00 Intra-abdominal and pelvic swelling, mass and lump, unspecified site (principal) | CPT/HCPCS: 99213 ==

== ENCOUNTER → 2023-02-15 11:09 | Outpatient (BNVA) | payer MEDICARE, MEDICAID, SELFPAY | PROVIDERS: PCP Family Medicine; Visit Provider Family Medicine | DX: R19.00 Intra-abdominal and pelvic swelling, mass and lump, unspecified site (principal); R62.50 Unspecified lack of expected normal physiological development in childhood | CPT/HCPCS: 80053; 85025 ==

== ENCOUNTER → 2023-07-01 18:18 | Outpatient (BNVA) | payer MEDICARE, MEDICAID, SELFPAY | PROVIDERS: PCP Family Medicine; Visit Provider Emergency Medicine | DX: S63.250A Unspecified dislocation of right index finger, initial encounter (principal); M79.644 Pain in right finger(s); X58.XXXA Exposure to other specified factors, initial encounter | CPT/HCPCS: 73130 ==

== ENCOUNTER → 2024-07-10 11:00 | Outpatient (BNVA) | payer MEDICARE, MEDICAID, SELFPAY | PROVIDERS: PCP Family Medicine; Visit Provider Family Medicine | DX: Z12.5 Encounter for screening for malignant neoplasm of prostate (principal); Z13.6 Encounter for screening for cardiovascular disorders; R79.89 Other specified abnormal findings of blood chemistry; N40.1 Benign prostatic hyperplasia with lower urinary tract symptoms; N13.8 Other obstructive and reflux uropathy; K21.9 Gastro-esophageal reflux disease without esophagitis; K59.00 Constipation, unspecified; E55.9 Vitamin D deficiency, unspecified | CPT/HCPCS: 80053; 80061; 82306; 82607; 83735; 84443; 85025; G0103 ==

== ENCOUNTER 2025-05-12 18:36 | Emergency (ER) | payer MEDICARE, MEDICAID, SELFPAY ==
[2025-05-12 18:39] VITALS: BP 130/77; PULSE 60; RESP 16; TEMP 36.3; O2SAT 94; BMI 20.9
--- OUTSIDE RECORDS SUMMARY | 2025-05-12 18:49 | XMS_ITS | Clinical Summary ---
Author Organization [facility] Address [address] [place] [address] Care Team Providers Care Fitter Hand Name Role Phone Adan Garza MD Primary Care Provider [phone] Allergies No known active allergies Medications No known medications Active Problems Problem Noted Date Diagnosed Date History of intestinal obstruction 04/03/2021 Onychomycosis 08/01/2020 Vitamin D deficiency 08/01/2020 Chronic fatigue 08/01/2020 Benign prostatic hyperplasia with urinary freque ncy 05/06/2020 Gastroesophageal reflux disease 05/06/2020 Encounters Date Type Department Care Team Description 04/03/2025 Patient Outreach [facility] [address] [place] [address] Adan Garza MD Primary Care Outreach (PCP Attribution / New patient - Called patient's number to schedule appointment. Invalid number If patient returns call, please schedule with ADAN Black (who is listed by insurance as PCP) or APPs in that office or any [facility] Primary Care Physician. If they are not interested in establishing care with [facility], please ask them to call the number on the back of their insurance card to update their insurance plan with the correct PCP.) from Last 3 Months Immunizations Immunization Administration Dates Next Due (TDVAX)(7 YRS UP) TETANUS AN D DIPHTHERIA TOXOIDS, ADSORBED (2 LF OF TETANUS TOXOID AND 2 LF OF DIPHTHERIA TOXOID), 0.5ML (PF), IM 04/21/1996 INFLUENZA VACCINE QUADRIVALENT 6 MOS UP PF IM ,08/03/2019 Influenza Vaccine 18+ C.derived Pf Im 08/08/2018 Family History Medical History Relation Name Comments Cancer Brother Heart Disease Maternal Grandfather Diabetes Maternal Grandmother Stroke Maternal Grandmother Diabetes Mother Relation Name Status Comments Brother Maternal Grandfather Maternal Grandmother Mother Social History Tobacco Use Types Packs/Day Years Used Date Smoking Tobacco: Never Smokeless Tobacco: Never Tobacco Cessation:Counseling Given: No Alcohol Use Standard Drinks/Week Comments Never 0 (1 standard drink = 0.6 oz pur e alcohol) Sex and Gender Information Value Date Recorded Sex Assigned at Not on file Legal Sex Male 1:21 PM TOWEL HEMMER Gender Identity Not on file Sexual Orientation Not on file Last Filed Vital Signs Vital Sign Reading Time Taken Comments Blood Pressure 122/70 09/21/2022 9:03 AM TOWEL HEMMER Pulse 62 09/21/2022 9:03 AM TOWEL HEMMER Temperature 37.3 C (99.2 F) 09/21/2022 9:03 AM TOWEL HEMMER Respiratory Rate 18 08/01/2020 9:07 AM CDT Oxygen Saturation 94% 09/21/2022 9:03 AM TOWEL HEMMER Inhaled Oxygen Concentration - - Weight 57.5 kg (126 lb 12.8 oz) 09/21/2022 9:03 AM TOWEL HEMMER Height 165.1 cm (5' 5 ) 09/21/2022 9:03 AM TOWEL HEMMER Body Mass Index 21.1 09/21/2022 9:03 AM TOWEL HEMMER Plan of Treatment Health Maintenance Due Date Last Done Comments DTAP/TDAP/TD VACCINES (1 - Tdap) 04/22/1996 04/21/19 96 FIT-DNA Q 3 years 2006 FIT/FOBT Q 1 year 2006 Flex Sig/CT Colonography Q 5 years 2006 ZOSTER VACCINE (1 of 2) 2011 Medicare Advantage ([place]) Preventative Visit/Annual Wellness Visit 10/25/2024 09/21/2022 INFLUENZA VACCINE (#1) 2025 , 08/01/2020, 08/03/2019, Additional history exists COLORECTAL SCREENING 08/27/2031 08/27/2021, 02/05/2021, 02/05/2021 Colorectal Cancer Screening 08/27/2031 RSV VACCINE (60+ or ) (1 - 1-dose 75+ series) 2036 Procedures Procedure Name Priority Date/Time Associated Diagnosis Comments ENDOSCOPY, COLON, DIAGNOSTIC Routine 08/27/2021 from Last 3 Months or Most Recently Relevant to Health Maintenance Results * ENDOSCOPY, COLON, DIAGNOSTIC (08/27/2021) Adan Garza MD GI PROCEDURE ORDERABLES Edited Result - Final from Last 3 Months or Most Recently Relevant to Health Maintenance Insurance [facility] DUAL COMPLETE HMO DSNP [facility] [id number] MEDICAID [place] Care Teams Fitter Hand Relationship Specialty Start Date End Date Adan Garza MD [address] [place] [address] PCP - General Family Practice 09/10/20
--- OUTSIDE RECORDS SUMMARY | 2025-05-12 18:49 | XMS_ITS | Clinical Summary ---
Author Organization [facility] Address [address] [address] Care Team Providers Care Test Engineer Nuclear Equipment Name Role Phone Manny Garza MD Primary Care Provider [phone] Allergies No known active allergies Medications omeprazole (PriLOSEC) 20 mg Capsule, Delayed Release(E.C.)Ind ications:Gastroe sophageal reflux disease, esophagitis presence not specified Take 1 Capsule (20 mg) by mouth daily. 90 Capsule 3 05/06/2020 Active tamsulosin (FLOMAX) 0.4 mg capsuleIndicatio ns:Benign prostatic hyperplasia with urinary frequency Take 1 Capsule (0.4 mg) by mouth daily. 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 Gender Identity Not on file Sexual Orientation Not on file Last Filed Vital Signs Vital Sign Reading Time Taken Comments Blood Pressure 154/70 04/03/2021 9:15 AM CDT Pulse 51 04/03/2021 9:15 AM CDT Temperature 36.9 C (98.4 F) 04/03/2021 9:15 AM CDT Respiratory Rate 18 08/01/2020 9:07 AM CDT Oxygen Saturation 97% 04/03/2021 9:15 AM CDT Inhaled Oxygen Concentration - - Weight 59 kg (130 lb) 04/03/2021 9:15 AM CDT Height 165.1 cm (5' 5 ) 04/03/2021 9:15 AM CDT Body Mass Index 21.63 04/03/2021 9:15 AM CDT Plan of Treatment Health Maintenance Due Date Last Done Comments DTAP/TDAP/TD VACCINES (1 - Tdap) 04/22/1996 04/21/19 96 FIT-DNA Q 3 years 2006 FIT/FOBT Q 1 year 2006 Flex Sig/CT Colonography Q 5 years 2006 ZOSTER VACCINE (1 of 2) 2011 Medicare [place]vantage ([place]) Prev entative Visit/Annual Wellness Visit 10/25/2024 INFLUENZA VACCINE (#1) 2025 0, 08/03/2019, 08/08/2018 COLORECTAL SCREENING 08/27/2031 08/27/2021, 02/06/20 21 Colorectal Cancer Screening 08/27/2031 RSV VACCINE (60+ or ) (1 - 1-dose 75+ series) 2036 Procedures Procedure Name Priority Date/Time Associated Diagnosis Comments ENDOSCOPY, COLON, SCREENING Routine 02/05/2021 from Last 3 Months or Most Recently Relevant to Health Maintenance Results * ENDOSCOPY, COLON, SCREENING (02/05/2021) Manny Garza MD GI PROCEDURE ORDERABLES Edited Result - Final from Last 3 Months or Most Recently Relevant to Health Maintenance Insurance [facility] DUAL COMPLETE MCR PPO D-SNP [place]ICAID [place] Care Teams Test Engineer Nuclear Equipment Relationship Specialty Start Date End Date Manny Garza MD [address] [place] [phone] PCP - General Family Practice 09/10/20
--- NOTE | 2025-05-12 19:23 | XRR_ITS ---
PROCEDURE INFORMATION: Exam: XR Right Elbow Exam date and time: 05/12/2025 7:29 PM Age: 65 years old Clinical indication: Right; RT elbow pain post fall TECHNIQUE: Imaging protocol: Radiologic exam of the right elbow. Views: 3 or more views. COMPARISON: No relevant prior studies available. FINDINGS: Bones/joints: No acute fracture or dislocation. Radiocapitellar alignment appears normal. Soft tissues: Dorsal soft tissue swelling about the elbow. XR/XR elbow RT min 3V* [id number] IMPRESSION: Dorsal soft tissue swelling but no acute fracture or dislocation.
--- NOTE | 2025-05-13 00:32 | W.ED.EXTPRO ---
HPI - Extremity Problem General: Chief complaint: Extremity Injury, Upper Stated complaint: Fell on R arm hurts and Swollen Time Seen by Provider: 05/12/25 18:52 Source: patient Mode of arrival: ambulatory Limitations: no limitations History of Present Illness: Patient is a 65-year-old male who presents the emergency department with right arm pain beginning last night after a fall. He states that he tripped accidentally and landed directly on his proximal right forearm. Notes that it started to swell, he has been applying ice but no medications taken at home. There is no obvious deformity, no discrepancies with range of motion or strength, and no other injuries with the fall. MD Complaint: extremity pain Onset (ago): day(s) (1) Location: right and upper extremity Associated symptoms: Deny chest pain, fever(s) or rash Related Data Previous Rx's ?Medication ?Instructions ?Recorded omeprazole 40 mg capsule,delayed 40 mg PO DAILY #90 caps 07/10/24 release tamsulosin 0.4 mg capsule 0.4 mg PO DAILY #90 caps 07/10/24 Allergies Allergy/AdvReac Type Severity Reaction Status Date / Time No Known Allergies Allergy Verified 11/01/24 08:31 Review of Systems General: Reports: 10 or more systems reviewed and unremarkable except in HPI and below Const: Denies: fever(s) or chills Card: Denies: chest pain Resp: Denies: dyspnea or productive cough GI: Denies: abdominal pain, nausea, vomiting or diarrhea : Denies: flank pain Musc: Reports: extremity pain (Right upper extremity) and extremity swelling (Right upper extremity); Denies: neck pain, back pain, joint pain, joint swelling, joint redness, joint warmth, limited range of motion or muscle weakness Skin/Breast: Denies: rash Neuro: Denies: headache(s), numbness in extremities or weakness in extremities PFSH ED PFSH: Medical History Colon polyp Diverticulosis Diverticulitis Gastroesophageal reflux Developmental delay Surgical History S/P partial colectomy Sigmoid stricture Family History Denies family history of Anesthesia complication Bleeding disorder Social History Smoking and tobacco/nicotine status: never used tobacco/nicotine Alcohol intake: never Substance/Drug Use: never Caregiver/support person: Yes (guardian is Gunjan Reynoso (mother)) Lives independently: No Physical Exam Const: COMMON NORMALS: no acute distress, patient oriented x3, no limitations, healthy appearing, alert and well nourished HENMT: COMMON NORMALS: normocephalic and atraumatic HEAD & SCALP: normocephalic and atraumatic Neck/C-Spine: COMMON NORMALS: full ROM, supple and no meningeal signs Resp: COMMON NORMALS: normal respiratory effort, No use of accessory muscles and clear to auscultation bilaterally AUSCULTATION: clear to auscultation bilaterally Cardio: COMMON NORMALS: regular rate and regular rhythm RATE: regular rate RHYTHM: regular rhythm Extremity: COMMON NORMALS: full ROM, capillary refill normal, no joint enlargement and no clubbing, cyanosis or edema NARRATIVE EXTREMITY EXAM: Tender to palpation right proximal forearm. Mild soft tissue swelling noted. No deformity of the right upper extremity. Distal neurovascular exam is normal. Strength is intact. Neuro: COMMON NORMALS: patient oriented x3, moves all extremities, no focal motor deficits and no sensory deficits noted SENSORIUM/ORIENTATION: Yes alert MENINGEAL SIGNS: Yes no meningeal signs Skin: COMMON NORMALS: no rashes or lesions noted GENERAL SKIN EXAM: no rashes or lesions noted Course Vital Signs: Vital signs: Vital Signs Temperature 97.3 F L 05/12/25 18:39 Pulse Rate 60 05/12/25 18:39 Respiratory Rate 16 05/12/25 18:39 Blood Pressure 130/77 05/12/25 18:39 Pulse Oximetry 94 05/12/25 18:39 Oxygen Delivery Me thod Room Air 05/12/25 18:39 MDM - Extremity (Nontraumatic) Medical Decision Making Patient fell on his right upper extremity, x-ray showing soft tissue swelling. This is consistent with contusion, there is no underlying fracture or dislocation of the elbow. Encouraged him to continue conservative therapy at home, follow-up routinely with regular provider. Lab Data Radiology Impressions Elbow X-Ray 05/12/25 19:23 IMPRESSION: Dorsal soft tissue swelling but no acute fracture or dislocation. All radiology interpretation(s) finalized by discharge Discharge Plan Discharge Patient Disposition: Home Clinical Impression: Contusion of forearm, right Condition: Stable Prescriptions: No Action omeprazole 40 mg capsule,delayed release(DR/EC) 40 mg PO DAILY Qty: 90 3RF tamsulosin 0.4 mg capsule 0.4 mg PO DAILY Qty: 90 3RF Discharge Orders: Discharge ED (Routine); Ordered 05/12/25 Ordered By: Manny Valdez Referrals: Cornell Wilkinson DO [Primary Care Provider, [facility]] Patient Instructions: Pain Management, Patient Portal & [place] Instructions Activity Restrictions/Additional Instructions: Forearm Contusion Discharge Care Instructions for Right Forearm Contusion (Bruise) After a Fall - Injury Care - Rest the injured arm as much as possible for the next few days. Avoid activities that cause pain or could make the injury worse. - Apply an ice pack (or a bag of frozen vegetables wrapped in a towel) to the bruised area for 15?20 minutes every 2?3 hours for the first 48 hours. This helps reduce pain and swelling. Do not put ice directly on the skin. - Keep the arm elevated above the level of the heart when possible to help decrease swelling. - If there is swelling, mild compression with a soft bandage may be used, but do not wrap it too tightly. If you notice numbness, tingling, or the hand becomes cold or blue, loosen the bandage and seek medical attention. - Protect the area from further injury. Avoid bumping or putting pressure on the bruise. - Pain Management - [id number] pain relievers such as acetaminophen (Tylenol) or ibuprofen (Advil, Motrin) can be used as directed on the package for pain control, unless you have been told by your doctor to avoid these medicines. - If pain is severe and not controlled with these medications, contact your healthcare provider. - When to Seek Medical Attention - Go to the emergency room or call your doctor if you notice: - Increasing pain, swelling, or redness - Numbness, tingling, or weakness in the hand or fingers - The hand or fingers become pale, blue, or cold - Trouble moving the fingers or wrist - Signs of infection (fever, pus, or red streaks) - The bruise does not improve or gets worse after a few days - Activity and Follow-Up - Gentle movement of the fingers, wrist, and elbow is encouraged as soon as it is comfortable to prevent stiffness, unless you have been told otherwise. - Resume normal activities as pain allows. Avoid heavy lifting or sports until cleared by your healthcare provider. - If you have trouble using your arm for daily activities (like dressing, bathing, or making meals), let your healthcare provider know. You may need extra help or therapy to recover. - Fall Prevention - Since the injury was caused by a fall, consider ways to make your home safer: - Remove loose rugs and clutter from walkways. - Use night lights in hallways and bathrooms. - Wear shoes with good support. - If you feel unsteady, talk to your healthcare provider about balance exercises or using a cane or walker. - Additional Instructions - If you are taking blood thinners or have a bleeding disorder, monitor the bruise closely and inform your healthcare provider of any changes. - Attend any scheduled follow-up appointments to ensure proper healing. If you have any questions or concerns about your injury or recovery, contact your healthcare provider. Print Language: Wallisian Coding Level of Care Code ED Cycle Repairer for John Patel
== END 2025-05-12 20:02 | disposition home or self-care (01) ==
PROVIDERS: Emergency Provider Physician Assistant; PCP Family Medicine
DX: S50.11XA Contusion of right forearm, initial encounter (principal); W01.0XXA Fall on same level from slipping, tripping and stumbling without subsequent striking against object, initial encounter; Z79.899 Other long term (current) drug therapy; K21.9 Gastro-esophageal reflux disease without esophagitis
CPT/HCPCS: 73080; 99283

== ENCOUNTER → 2025-05-23 09:51 | Outpatient (BNVA) | payer MEDICARE, MEDICAID, SELFPAY | PROVIDERS: PCP Family Medicine; Visit Provider Podiatrist Foot & Ankle Surgery | DX: E11.40 Type 2 diabetes mellitus with diabetic neuropathy, unspecified (principal); L60.3 Nail dystrophy | CPT/HCPCS: 11721; 99203 ==

== ENCOUNTER 2025-06-30 14:08 | Emergency (ER) | payer MEDICARE, MEDICAID, SELFPAY ==
--- OUTSIDE RECORDS SUMMARY | 2025-06-23 08:00 | XMS_ITS | Encounter Summary ---
Author Organization [facility] Address [address] [place] [address] Care Team Providers Care Dynamometer Mechanic Name Role Phone Provider, Outside Primary Care Provider [phone] Reason for Visit * Reason Comments Dental Pain Upper left tooth jose n Encounter Details Date Type Department Care Team (Late st Contact Info) Description 06/23/2025 8:00 AM CDT [facility] [address] [place] [address] [facility] [address] [place] [address] Social History Tobacco Use Types Packs/Day Years Used Date Smoking Tobacco: Never Smokeless Tobacco: Never Tobacco Cessation:Counseling Given: Not Answered Sex and Gender Information Value Date Recorded Sex Assigned at Male 06/23/2025 6:32 AM PDT Legal Sex Male 11:49 AM PDT Gender Identity Male 06/23/2025 6:32 AM PDT Sexual Orientation Straight 06/23/2025 6: 32 AM PDT documented as of this encounter Last Filed Vital Signs Vital Sign Reading Time Taken Comments Blood Pressure 138/80 06/23/2025 8:40 AM CDT Pulse 52 06/23/2025 8:40 AM CDT Temperature - - Respiratory Rate - - Oxygen Saturation - - Inhaled Oxygen Concentration - - Weight - - Height - - Body Mass Index - - documented in this encounter Progress Notes * Aminah Michael - 06/23/2025 8:32 AM CDT Time Out Patient's name and age were verified. Patients medication and medical history were verified, reviewed, and updated if necessary. Timeout was performed to verify patient and the procedure to be performed. Informed consent was reviewed with patient prior to initiating any treatment and then signed after discussion with provider. Written and verbal post-operative instructions were given if applicable. Detailed Visit summary: 65 year old male presents with caregiver for appointment. Pt states he has a tooth on his upper left side that has been causing him pain for awhile now and he would like to have the tooth extracted. Manager Environmental Health And Safety: No This appointment/no show policy was given to and discussed with the patient/director of healthcare systems at today's appointment. Yes Insurance or Self Pay: [facility] Behavior: Excellent DA: Aminah Dentist: [place]: n/a LIMITED EXAM Kane presents to clinic for emergency appointment. Radiograph: First PA S: Pt states he has a tooth on the upper rleft side in constant pain. Pt states that it is a sharp pain and he has had it for awhile and would like to get it extracted. O: PA taken of tooth #14. Large distal decay extending into the root surfaces. Some acute periapical abscessing. A: Extraction of tooth #14. Non restorable deep decay. P: Extraction of tooth #14 ANESTHETIC Local anesthetic administered: 4% Septocaine - 1:100,000 Epi Total Carpules 2 2% Lidocaine - 1:100,000 Epi Total Carpules 1 Injection site: PSA, MSA, Palatal EXTRACTION Kane presented for extraction of tooth number 14. BP 138/80 Pulse 52 Smoking Status Never Reason: Non restorable deep decay Alternative Treatment: No treatment Type of Extraction:Routine Extraction Details: Gingival reflection, elevator/forceps delivery Suture: n/a None Complications were None RX: n/a Hemostasis controlled prior to patient leaving. Verbal and written post-op instructions and home care instructions were given. documented in this encounter Plan of Treatment Not on file documented as of this encounter Procedures Procedure Name Priority Date/Time Associated Diagnosis Comments 14 EXTRACTION ERUPTED TOOTH OR EXPOSED ROOT Routine 06/23/2025 8:00 AM CDT Pain, dental 14 INTRAORAL - PERIAPICAL FIRST RADIOGRAPHIC IMAGE Routine 06/23/2025 8:00 AM CDT Pain, dental LIMITED ORAL EVALUATION - PROBLEM FOCUSED Routine 06/23/2025 8:00 AM CDT Pain, dental documented in this encounter Visit Diagnoses Diagnosis Pain, dental- Primary Unspecified disorder of the teeth and supporting structures documented in this encounter Care Teams Dynamometer Mechanic Relationship Specialty Start Date End Date Provider, Outside N/A N/A PCP - General Specialist - Other Service Providers 06/23/25 documented as of this encounter
[2025-06-30 14:11] VITALS: BP 123/67; PULSE 60; RESP 17; TEMP 36.6; O2SAT 96; BMI 21.3
--- OUTSIDE RECORDS SUMMARY | 2025-06-30 14:16 | XMS_ITS | Clinical Summary ---
Author Organization [facility] Address [facility] [address] [place] [address] Care Team Providers Care Nurse General Duty Name Role Phone Provider, Outside Primary Care Provider Source Comments PLEASE NOTE, if this patient is a minor, it may be UNLAWFUL to discuss sensitive information that is contained in these records (such as FAMILY PLANNING, MENTAL HEALTH or SUBSTANCE ABUSE) with the minor patient's parent or other person without the patient's specific authorization.[facility] Encounters Date Type Department Care Team Description 06/23/2025 8:00 AM CDT Office Visit [address] [address] [facility] from Last 3 Months Social History Tobacco Use Types Packs/Day Years Used Date Smoking Tobacco: Never Smokeless Tobacco: Never Tobacco Cessation:Counseling Given: Not Answered Sex and Gender Information Value Date Recorded Sex Assigned at Male 06/23/2025 6:32 AM PDT Legal Sex Male 11:49 AM PDT Gender Identity Male 06/23/2025 6:32 AM PDT Sexual Orientation Straight 06/23/2025 6: 32 AM PDT Last Filed Vital Signs Vital Sign Reading Time Taken Comments Blood Pressure 138/80 06/23/2025 8:40 AM CDT Pulse 52 06/23/2025 8:40 AM CDT Temperature - - Respiratory Rate - - Oxygen Saturation - - Inhaled Oxygen Concentration - - Weight - - Height - - Body Mass Index - - Plan of Treatment Health Maintenance Due Date Last Done Comments Anxiety Screening 1961 Diabetes Screening 1961 Hepatitis C Screening 1961 Lipid Screening 1961 HIV Screening 1976 Imm-DTaP/Tdap/Td (1 - Tdap) 04/22/1996 04/21/1996 CT Colonography 2006 Colonoscopy 2006 Colorectal Cancer Screening 2006 FIT/gFOBT 2006 Fecal DNA 2006 Flexible Sigmoidoscopy 2006 Imm-Pneumococcal 50+ (1 of 1 - PCV) 2011 Imm-Zoster, Recombinant (1 of 2) 2011 Alcohol and Drug Screen 10/25/2024 Depression Annual Screen 10/25/2024 [id number] (1 - season) 2025 Imm-Influenza (#1) 2025 09/29/2021, 1 , 08/03/2019, Additional history exists Hypertension Screening (#1) 06/23/2026 Tobacco Screening 06/23/2026 06/23/2025 Procedures Procedure Name Priority Date/Time Associated Diagnosis Comments 14 INTRAORAL - PERIAPICAL FIRST RADIOGRAPHIC IMAGE Routine 06/23/2025 8:00 AM CDT Pain, dental LIMITED ORAL EVALUATION - PROBLEM FOCUSED Routine 06/23/2025 8:00 AM CDT Pain, dental 14 EXTRACTION ERUPTED TOOTH OR EXPOSED ROOT Routine 06/23/2025 8:00 AM CDT Pain, dental from Last 3 Months Insurance [facility] MEDICAID Care Teams Nurse General Duty Relationship Specialty Start Date End Date Provider, Outside N/A N/A PCP - General Specialist - Other Service Providers 06/23/25
--- OUTSIDE RECORDS SUMMARY | 2025-06-30 14:17 | XMS_ITS | Clinical Summary ---
Author Organization 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
--- OUTSIDE RECORDS SUMMARY | 2025-06-30 14:17 | XMS_ITS | Clinical Summary ---
Author Organization [facility]ety Address [address] [place] [address] Care Team Providers Care Parachute Packer Name Role Phone Adan Garza MD Primary Care Provider [phone] Allergies No known active allergies Medications No known medications Active Problems Problem Noted Date Diagnosed Date History of intestinal obstruction 04/03/2021 Onychomycosis 08/01/2020 Vitamin D deficiency 08/01/2020 Chronic fatigue 08/01/2020 Benign prostatic hyperplasia with urinary freque ncy 05/06/2020 Gastroesophageal reflux disease 05/06/2020 Encounters Date Type Department Care Team Description 04/03/2025 Patient Outreach [facility] [address] [place] [address] Adan Garza MD Primary Care Outreach (PCP Attribution / New patient - Called patient's number to schedule appointment. Invalid number If patient returns call, please schedule with ADAN Black (who is listed by insurance as PCP) or APPs in that office or any [facility] Primary Care Physician. If they are not interested in establishing care with [facility], please ask them to call the [...] drink = 0.6 oz pur e alcohol) Financial Resource Strain Answer Date R ecorded How hard is it for you to pa y for the very basics like food, housing, medical care, and heating? Not hard at all 09/21/2022 Food Insecurity Answer Date Recorded In the past 12 months, have you worried that your food would run out before you had money to buy more? Never true 09/21/2022 In the past 12 months, did y ou run out of food and didn't have money to buy more? Never true 09/21/2022 Transportation Needs Answer Date Record ed In the past 12 months, has l ack of transportation kept you from medical appointments or from getting medications? No 09/21/2022 Lack of Transportation (Non-Medical) Not on file 09/21/2022 Sex and Gender Information Value Date Recorded Sex Assigned at Not on file Legal Sex Male 1:21 PM CONTRIBUTION SOLICITOR Gender Identity Not on file Sexual Orientation Not on file Last Filed Vital Signs Vital Sign Reading Time Taken Comments Blood Pressure 122/70 09/21/2022 9:03 AM CONTRIBUTION SOLICITOR Pulse 62 09/21/2022 9:03 AM CONTRIBUTION SOLICITOR Temperature 37.3 C (99.2 F) 09/21/2022 9:03 AM CONTRIBUTION SOLICITOR Respiratory Rate 18 08/01/2020 9:07 AM CDT Oxygen Saturation 94% 09/21/2022 9:03 AM CONTRIBUTION SOLICITOR Inhaled Oxygen Concentration - - Weight 57.5 kg (126 lb 12.8 oz) 09/21/2022 9:03 AM CONTRIBUTION SOLICITOR Height 165.1 cm (5' 5 ) 09/21/2022 9:03 AM CONTRIBUTION SOLICITOR Body Mass Index 21.1 09/21/2022 9:03 AM CONTRIBUTION SOLICITOR Plan of Treatment Health Maintenance Due Date Last Done Comments DTAP/TDAP/TD VACCINES (1 - Tdap) 04/22/1996 04/21/19 96 FIT-DNA Q 3 years 2006 FIT/FOBT Q 1 year 2006 Flex Sig/CT Colonography Q 5 years 2006 ZOSTER VACCINE (1 of 2) 2011 [place] Preventative Visit/Annual Wellness Visit 10/25/2024 09/21/2022 INFLUENZA VACCINE (#1) 2025 2, 08/01/2020, 08/03/2019, Additional history exists COLORECTAL SCREENING [...] Most Recently Relevant to Health Maintenance Insurance [facility] DUAL COMPLETE HMO [facility] [id number] [place]ICA[place] Care Teams Parachute Packer Relationship Specialty Start Date End Date Adan Garza MD [address], [place] [address] PCP - General Family Practice 09/10/20
--- NOTE | 2025-06-30 15:06 | W.ED.GIBLEED ---
HPI - GI Bleed General: Chief complaint: GI Bleed Stated complaint: L upper ABD passing Blood Time Seen by Provider: 06/30/25 14:52 History of Present Illness: 65-year-old man with a history of diverticulosis, GERD and developmental delay who presents to the emergency room with concern for bright red blood. Apparently had had a complication in the past and had an hole in his intestines . He is not in any distress now. Vital signs are normal. He had reported just a small amount of bright red blood with stool. Related Data Home Medications ?Medication ?Instructions ?Recorded ?Confirmed cholecalciferol (vitamin D3) 50 50 mcg PO DAILY 05/22/25 06/30/25 mcg (2,000 unit) tablet psyllium husk 3.4 gram/5.4 gram 1 tbsp PO BID 06/30/25 06/30/25 oral powder (Metamucil) tamsulosin 0.4 mg capsule 0.4 mg PO DAILY 06/30/25 06/30/25 vitamin B complex 1 tab PO DAILY 06/30/25 06/30/25 Previous Rx's ?Medication ?Instructions ?Recorded omeprazole 40 mg capsule,delayed 40 mg PO DAILY #90 caps 07/10/24 release hydrocodone 5 mg-acetaminophen 325 1 tab PO Q6H PRN pain #30 tabs 06/30/25 mg tablet polyethylene glycol 3350 17 17 g PO DAILY #510 grams 06/30/25 gram/dose oral powder (Miralax) Allergies Allergy/AdvReac Type Severity Reaction Status Date / Time No Known Allergies Allergy Verified 05/23/25 10:03 Review of Systems Narrative: Constitutional symptoms: Negative except as documented in HPI. Skin symptoms: Negative except as documented in HPI. Eye symptoms: Negative except as documented in HPI. ENMT symptoms: Negative except as documented in HPI. Respiratory symptoms: Negative except as documented in HPI. Cardiovascular symptoms: Negative except as documented in HPI. Gastrointestinal symptoms: Negative except as documented in HPI. Genitourinary symptoms: Negative except as documented in HPI. Musculoskeletal symptoms: Negative except as documented in HPI. Neurologic symptoms: Negative except as documented in HPI. Psychiatric symptoms: Negative except as documented in HPI. Endocrine symptoms: Negative except as documented in HPI. [facility] ED PFSH: Medical History (Updated 06/30/25 @ 17:14 by Mayela Vela MD) Colon polyp Diverticulosis Diverticulitis Gastroesophageal reflux Developmental delay Surgical History S/P partial colectomy Sigmoid stricture Family History Denies family history of Anesthesia complication Bleeding disorder Social History Smoking and tobacco/nicotine status: never used tobacco/nicotine Alcohol intake: never Substance/Drug Use: never Caregiver/support person: Yes (guardian is Gunjan Reynoso (mother)) Lives independently: No Physical Exam Narrative: EXAM NARRATIVE: General: Alert, no acute distress. Skin: Warm, dry. Head: Normocephalic, atraumatic. Neck: Supple, trachea midline. Eye: Extraocular movements are intact. Ears, nose, mouth and throat: mucosa moist. Cardiovascular: Regular, Normal peripheral perfusion. Respiratory: Lungs are clear to auscultation, respirations are non-labored, breath sounds are equal, Symmetrical chest wall expansion. Gastrointestinal: Soft, Nontender, Non distended Musculoskeletal: Normal ROM, no deformity. Neurological: Alert and oriented, No focal neurological deficit observed. Psychiatric: Cooperative, appropriate mood & affect. Course Vital Signs: Vital signs: Vital Signs Temperature 97.9 F 06/30/25 14:11 Pulse Rate 60 06/30/25 14:11 Respiratory Rate 17 06/30/25 14:11 Blood Pressure 123/67 06/30/25 14:11 Pulse Oximetry 96 06/30/25 14:11 Oxygen Delivery Me thod Room Air 06/30/25 14:11 MDM - GI Bleed Medical Decision Making Medical decision making: Differential diagnosis for patient who presents with hematochezia/bright red blood per rectum including but not limited to and based on the above HPI, review of systems and physical exam: Internal hemorrhoid bleeding, diverticular bleeding, irritated colonic mucosa. This is most often not life-threatening. Main concerns would be for anemia. Also if this were a very brisk upper GI bleed there might be an elevation in the BUN. But likely this is lower GI bleeding. Orders placed to evaluate differential diagnosis based on the above differential, HPI and physical exam Lab Review: Laboratory results were reviewed and interpreted by myself the emergency room physician. No leukocytosis. No anemia. No renal failure. CT of the abdomen pelvis with contrast: No acute diverticulitis. There was some concern for proctitis but patient does not have any symptoms that would indicate that he has this. This was reviewed and interpreted by myself the emergency room physician. I also reviewed the radiology report. I reviewed the patient's medical record. Reexamination: Patient remained stable. No increased work of breathing. No altered mental status. No focal motor deficits. Assessment and plan: Bright red blood per rectum ?No indication for intervention at this time - Discharged home - Discussed plan with patient. Answered any questions. - Evaluation and treatment of this problem were appropriate in the emergency setting. Lab Data 06/30/25 15:12 06/30/25 16:01 Radiology Impressions Abdomen/Pelvis CT 06/30/25 15:08 IMPRESSION: 1. Findings suspicious for proctitis. Please correlate clinically. 2. Other findings as above. Laboratory Results WBC 4.60 10^3/uL (3.29-11.43) 06/30/25 15:12 RBC 4.36 10^6/uL (3.85-5.65) 06/30/25 15:12 Hgb 13.50 g/dL (11.27-16.99) 06/30/25 15:12 Hct 41.1 % (37-53) 06/30/25 15:12 MCV 94.3 fl (82-101) 06/30/25 15:12 MCH 31.0 pg (27-33) 06/30/25 15:12 MCHC 32.8 g/dL (30-55) 06/30/25 15:12 RDW 13.1 % (12.1-15.1) 06/30/25 15:12 Plt Count 195 10^3/cmm (157-399) 06/30/25 15:12 MPV 9.5 fL (7.4-10.4) 06/30/25 15:12 Neut % (Auto) 50.9 % 06/30/25 15:12 Lymph % (Auto) 27.4 % 06/30/25 15:12 Barrow % (Auto) 13.0 % 06/30/25 15:12 Eos % (Auto) 7.8 % 06/30/25 15:12 Baso % (Auto) 0.7 % 06/30/25 15:12 Neut # (Auto) 2.34 10^3/uL (1.8-7.7) 06/30/25 15:12 Lymph # (Auto) 1.3 10^3/uL (0.8-4.8) 06/30/25 15:12 Barrow # (Auto) 0.6 10^3/uL (0.2-0.9) 06/30/25 15:12 Eos # (Auto) 0.4 10^3/uL (0.0-0.8) 06/30/25 15:12 Baso # (Auto) 0.0 10^3/uL (0.0-0.1) 06/30/25 15:12 Nucleated RBC % (auto) 0 % 06/30/25 15:12 Nucleated RBCs # 0.0 /100WBC 06/30/25 15:12 PT 12.70 SECONDS (12.1-14.9) 06/30/25 16:01 INR 0.89 (0.8-1.2) 06/30/25 16:01 APTT 28.5 SECONDS (23.9-36.7) 06/30/25 16:01 Sodium 134 mmol/L (136-145) L 06/30/25 16:01 Potassium 3.8 mmol/L (3.5-5.1) 06/30/25 16:01 Chloride 99 mmol/L (98-107) 06/30/25 16:01 Carbon Dioxide 27 mmol/L (22-29) 06/30/25 16:01 Anion Gap 11.8 (5-19) 06/30/25 16:01 BUN 14 mg/dL (8-23) 06/30/25 16:01 Creatinine 0.7 mg/dL (0.7-1.2) 06/30/25 16:01 GFR Calculation 113.5 mL/min (90-130) 06/30/25 16:01 Glucose 91 mg/dL (65-115) 06/30/25 16:01 Calculated Osmolality 278 mOsm/kg (285-295) L 06/30/25 16:01 Calcium 9.2 mg/dL (8.5-10.5) 06/30/25 16:01 Total Bilirubin 0.2 mg/dL (0.15-1.2) 06/30/25 16:01 AST 13 U/L (0-40) 06/30/25 16:01 ALT 12 U/L (0-41) 06/30/25 16:01 Alkaline Phosphatase 97 U/L (40-130) 06/30/25 16:01 Total Protein 6.7 g/dL (6.6-8.7) 06/30/25 16:01 Albumin 3.8 g/dL (3.5-5.2) 06/30/25 16:01 Globulin 2.9 g/dL (1.3-4.6) 06/30/25 16:01 All radiology interpretation(s) finalized by discharge Discharge Plan Discharge Patient Disposition: Home Clinical Impression: Melena Condition: Stable Prescriptions: New hydrocodone-acetaminophen 5-325 mg tablet 1 tab PO Q6H PRN (Reason: pain) Qty: 30 0RF polyethylene glycol 3350 [Miralax] 17 gram/dose powder 17 g PO DAILY Qty: 510 0RF Rx Instructions: Take 1 scoop daily while taking pain medications. No Action omeprazole 40 mg capsule,delayed release(DR/EC) 40 mg PO DAILY Qty: 90 3RF cholecalciferol (vitamin D3) 50 mcg (2,000 unit) tablet 50 mcg PO DAILY vitamin B complex Tablet 1 tab PO DAILY tamsulosin 0.4 mg capsule 0.4 mg PO DAILY Metamucil 3.4 gram/5.4 gram Powder 1 tbsp PO BID Rx Instructions: mix into at least 8 oz of water or juice before administering Discharge Orders: Discharge ED (Routine); Ordered 06/30/25 Ordered By: Mayela Vela Referrals: Alejandro Osei, [Primary Care Provider, Family Practice] Discharge Diet: Usual diet Discharge Activity: Increase activity as tolerated Patient Instructions: Opioid Safety, Pain Management, Patient Portal & [place] Instructions Activity Restrictions/Additional Instructions: Thank you for choosing [facility] for your healthcare needs today. You have been screened and evaluated and felt safe for discharge. Health conditions do change or evolve sometimes and as such it is important that you follow up with your Primary Doctor to be re checked, 3-5 days is a general good time frame for follow up. You are always welcome to return to the ED for re assessment if your symptoms are worsening or you have new concerns Print Language: Luxembourgish Coding Level of Care Code ED Senior Marketing Associate for John Patel
--- NOTE | 2025-06-30 15:08 | CTR_ITS ---
PROCEDURE INFORMATION: Exam: CT Abdomen And Pelvis With Contrast Exam date and time: 06/30/2025 3:22 PM Age: 65 years old Clinical indication: Abdominal pain TECHNIQUE: Imaging protocol: Computed tomography of the abdomen and pelvis with contrast. Radiation optimization: All CT scans at this facility use at least one of these dose optimization techniques: automated exposure control; mA and/or kV adjustment per patient size (includes targeted exams where dose is matched to clinical indication); or iterative reconstruction. Contrast material: [id number]; Contrast volume: 75 ml; Contrast route: INTRAVENOUS (IV); COMPARISON: CT abdomen pelvis w con* [id number] 07/24/2021 1:00 PM RADIATION DOSE METRICS: Total DLP (mGy-cm): 332.9 FINDINGS: Liver: Stable 2 cm hemangioma in segment 4A left lobe of the liver. Tiny hypodensity too small to characterize in subcapsular right lobe of the liver segment 5. Gallbladder and biliary ducts: Normal. No calcified stones. No ductal dilation. Pancreas: Normal. No ductal dilation. Spleen: Normal. No splenomegaly. Adrenal glands: Normal. No mass. Kidneys and ureters: Normal. No hydronephrosis. Stomach and bowel: Redemonstration of postsurgical changes from previous partial sigmoidectomy. Moderate circumferential rectal wall thickening. Appendix: No evidence of appendicitis. Intraperitoneal space: Unremarkable. No free air. No significant fluid collection. Vasculature: Unremarkable. No abdominal aortic aneurysm. Lymph nodes: One or more calcified pulmonary, hilar and/or mediastinal lymph nodes are observed consistent with old granulomatous disease. Urinary bladder: Unremarkable as visualized. Reproductive: Mild prostatomegaly is unchanged. Bones/joints: Variably [id number] degenerative changes in the lumbar spine with rotary levoscoliosis unchanged from prior. Soft tissues: Unremarkable. CT/CT abdomen pelvis w con* [id number] IMPRESSION: 1. Findings suspicious for proctitis. Please correlate clinically. 2. Other findings as above.
[2025-06-30 15:19] LABS: Hematocrit 41.1 % (37-53); Hemoglobin 13.50 g/dL (11.27-16.99); Mean Corpuscular HGB Conc 32.8 g/dL (30-55); Mean Corpuscular Hemoglobin 31.0 pg (27-33); Mean Corpuscular Volume 94.3 fl (82-101); Nucleated Red Blood Cells % 0 %; Platelet Count 195 10^3/cmm (157-399); Red Blood Count 4.36 10^6/uL (3.85-5.65); White Blood Count 4.60 10^3/uL (3.29-11.43)
[2025-06-30] MEDS: iohexol 350 mg/mL 500 mL Btl (per mL) IV (15:26)
[2025-06-30 16:19] LABS: INR 0.89 (0.8-1.2); Partial Thromboplastin Time 28.5 SECONDS (23.9-36.7); Prothrombin Time 12.70 SECONDS (12.1-14.9)
[2025-06-30 16:32] LABS: Alanine Aminotransferase 12 U/L (0-41); Albumin Level 3.8 g/dL (3.5-5.2); Alkaline Phosphatase 97 U/L (40-130); Anion Gap 11.8 (5-19); Aspartate Amino Transferase 13 U/L (0-40); Blood Urea Nitrogen 14 mg/dL (8-23); Calcium 9.2 mg/dL (8.5-10.5); Carbon Dioxide 27 mmol/L (22-29); Chloride 99 mmol/L (98-107); Creatinine Clr Calc Pharmacy 87.5423; Globulin 2.9 g/dL (1.3-4.6); Glucose 91 mg/dL (65-115); Osmolality Calculated 278 mOsm/kg (285-295); Potassium 3.8 mmol/L (3.5-5.1); Sodium 134 mmol/L (136-145); Total Protein 6.7 g/dL (6.6-8.7)
== END 2025-06-30 17:27 | disposition home or self-care (01) ==
PROVIDERS: Emergency Provider Emergency Medicine; PCP Family Medicine
DX: K92.1 Melena (principal); K21.9 Gastro-esophageal reflux disease without esophagitis; R62.50 Unspecified lack of expected normal physiological development in childhood
CPT/HCPCS: 36415; 74177; 80053; 85025; 85610; 85730; 99285

== ENCOUNTER → 2025-07-10 11:04 | Outpatient (BNVA) | payer MEDICARE, MEDICAID, SELFPAY | PROVIDERS: PCP Family Medicine; Visit Provider Family Medicine | DX: R07.81 Pleurodynia (principal); W19.XXXA Unspecified fall, initial encounter; J84.10 Pulmonary fibrosis, unspecified | CPT/HCPCS: 71045 ==

== ENCOUNTER 2025-09-15 22:44 | Inpatient (IN) | payer MEDICARE, MEDICAID, SELFPAY ==
--- OUTSIDE RECORDS SUMMARY | 2025-09-15 22:49 | XMS_ITS | Clinical Summary ---
Author Organization [facility] Address [address] [place] [address] Care Team Providers Care Procurement Intern Name Role Phone Manny Garza MD Primary Care Provider Allergies No known active allergies Medications No known medications Active Problems Problem Noted Date Diagnosed Date History of intestinal obstruction 04/03/2021 Onychomycosis 08/01/2020 Vitamin D deficiency 08/01/2020 Chronic fatigue 08/01/2020 Benign prostatic hyperplasia with urinary freque ncy 05/06/2020 Gastroesophageal reflux disease 05/06/2020 Immunizations Immunization Administration Dates Next Due [...] on file Legal 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 Gender Identity Not on file Sexual Orientation Not on file Last Filed Vital Signs Vital Sign Reading Time Taken Comments Blood Pressure 122/70 09/21/2022 9:03 AM FINANCIAL LEGAL ASSISTANT Pulse 62 09/21/2022 9:03 AM FINANCIAL LEGAL ASSISTANT Temperature 37.3 C (99.2 F) 09/21/2022 9:03 AM FINANCIAL LEGAL ASSISTANT Respiratory Rate 18 08/01/2020 9:07 AM CDT Oxygen Saturation 94% 09/21/2022 9:03 AM FINANCIAL LEGAL ASSISTANT Inhaled Oxygen Concentration - - Weight 57.5 kg (126 lb 12.8 oz) 09/21/2022 9:03 AM FINANCIAL LEGAL ASSISTANT Height 165.1 cm (5' 5 ) 09/21/2022 9:03 AM FINANCIAL LEGAL ASSISTANT Body Mass Index 21.1 09/21/2022 9:03 AM FINANCIAL LEGAL ASSISTANT Plan of Treatment Health Maintenance Due Date Last Done Comments DTAP/TDAP/TD VACCINES (1 - Tdap) 04/22/1996 04/21/19 96 FIT-DNA Q 3 years 2006 FIT/FOBT Q 1 year 2006 Flex Sig/CT Colonography Q 5 years 2006 ZOSTER VACCINE (1 of 2) 2011 Medicare [place]vantage ([place]) Prev entative Visit/Annual Wellness Visit 10/25/2024 09/21/2022 INFLUENZA VACCINE (#1) 2025 , 08/03/2019, 08/08/2018 COLORECTAL SCREENING 08/27/2031 08/27/2021, 02/05/2021, 02/05/2021 Colorectal Cancer Screening 08/27/2031 RSV VACCINE (60+ or ) (1 - 1-dose 75+ series) 2036 Procedures Procedure Name Priority Date/Time Associated Diagnosis Comments ENDOSCOPY, COLON, DIAGNOSTIC Routine 08/27/2021 from Last 3 Months or Most Recently Relevant to Health Maintenance Results * ENDOSCOPY, COLON, DIAGNOSTIC (08/27/2021) Manny Garza MD GI PROCEDURE ORDERABLES Edited Result - Final from Last 3 Months or Most Recently Relevant to Health Maintenance Insurance [facility] DUAL COMPLETE HMO [facility] [id number] [place]ID [place] Care Teams Procurement Intern Relationship Specialty Start Date End Date Manny Garza MD [address] [place] [address] PCP - General Family Practice 09/10/20
--- OUTSIDE RECORDS SUMMARY | 2025-09-15 22:49 | XMS_ITS | Clinical Summary ---
Author Organization 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
[2025-09-15 22:50] VITALS: BP 131/70; PULSE 70; RESP 16; TEMP 37; O2SAT 97
--- NOTE | 2025-09-15 23:06 | XRR_ITS ---
PROCEDURE INFORMATION: Exam: XR Right Hip Exam date and time: 09/15/2025 11:10 PM Age: 65 years old Clinical indication: Injury or trauma; Fall; Blunt trauma (contusions or hematomas); Right; Hip; Prior surgery; Surgery date: 6+ months; Surgery type: Cholectomy; Additional info: Fall, pain to R groin/fem neck region TECHNIQUE: Imaging protocol: Radiologic exam of the right hip. Views: 1 view hip with pelvis when performed. COMPARISON: CT abdomen pelvis w con* [id number] 06/30/2025 3:22 PM FINDINGS: Bones/joints: Displaced right transcervical femoral neck fracture. Diffuse osseous demineralization. Soft tissues: Unremarkable. XR/XR hip RT 2-3V wo/w pel* [id number] IMPRESSION: Displaced right transcervical femoral neck fracture.
--- NOTE | 2025-09-15 23:06 | XRR_ITS ---
PROCEDURE INFORMATION: Exam: XR Right Femur Exam date and time: 09/15/2025 11:10 PM Age: 65 years old Clinical indication: Injury or trauma; Fall; Blunt trauma; Thigh or upper leg; Right; Prior surgery; Surgery date: 6+ months; Surgery type: Cholectomy; Additional info: Fall, pain to R groin/fem neck region TECHNIQUE: Imaging protocol: Radiologic exam of the right femur. Views: 2 views. COMPARISON: CT abdomen pelvis w con* [id number] 06/30/2025 3:22 PM FINDINGS: Bones/joints: Displaced right transcervical femoral neck fracture. Diffuse osseous demineralization. Soft tissues: Unremarkable. XR/XR femur RT min 2V* [id number] IMPRESSION: Displaced right transcervical femoral neck fracture.
[2025-09-15 23:11] VITALS: RESP 17; O2SAT 99
[2025-09-15] MEDS: oxyCODONE 5 mg IR Tab/Cap PO (23:11)
--- NOTE | 2025-09-15 23:13 | ED_ITS ---
HPI - Fall 2 General: Chief Complaint: Fall Stated Complaint: fall right leg/knee injury Time Seen by Provider: 09/15/25 22:48 History of Present Illness: Patient is a 65-year-old male with a past medical history of cognitive delay, GERD, BPH who presents to the ED with right hip pain. Patient initially had a minor fall 3 days ago, lives with his sister and her , they have been noticing that he has been using his mom's walker since but has still been using his right foot, they got more concerned today when he had a another fall out of the walker and reported worsening pain at the right hip so they brought him here for evaluation. He has been taking Advil to mild relief, no previous orthopedic injuries to his right lower extremity, denies any numbness or tingling. Denies traumatic injuries anywhere else. Related Data Home Medications ?Medication ?Instructions ?Recorded ?Confirmed cholecalciferol (vitamin D3) 50 50 mcg PO DAILY 09/16/25 mcg (2,000 unit) tablet psyllium husk 3.4 gram/5.4 gram 1 tbsp PO BID 06/30/25 09/16/25 oral powder (Metamucil) tamsulosin 0.4 mg capsule 0.4 mg PO DAILY 06/30/25 vitamin B complex 1 tab PO DAILY 06/30/2508/26 Previous Rx's ?Medication ?Instructions ?Recorded omeprazole 40 mg capsule,delayed See Rx Instructions . Route 08/20/25 release .COMPLEX #90 caps aspirin 81 mg tablet 81 mg PO DAILY 35 days #35 t abs 09/17/25 oxycodone 5 mg tablet 5 mg PO Q4H PRN Moderate Vinnie n 5 09/17/25 days #30 tabs Allergies Allergy/AdvReac Type Severity Reaction Status Date / Time No Known Allergies Allergy Verified 09/07/25 08:52 Review of Systems 2 General: Reports: 10 or more systems reviewed and unremarkable except in HPI and below Musc: Reports: joint pain PFSH ED 2 PFSH: Medical History (Updated 09/19/25 @ 12:28 by Ramone Sosa DO) Colon polyp Diverticulosis Diverticulitis Gastroesophageal reflux Developmental delay Surgical History S/P partial colectomy Sigmoid stricture Family History Denies family history of Anesthesia complication Bleeding disorder Social History Smoking and tobacco/nicotine status: never used tobacco/nicotine Alcohol intake: never Substance/Drug Use: never Caregiver/support person: Yes (guardian is Gunjan Reynoso (mother)) Lives independently: No Physical Exam 2 Narrative: EXAM NARRATIVE: Overall well-appearing, nontoxic, afebrile, vital stable on arrival, no acute distress. Right hip with point tenderness to femoral neck/groin region, no overlying erythema, bruising, warmth. No obvious deformity or shortening. Compartment soft. Good coloration. Limited range of motion at hip secondary to pain. No CTL midline tenderness, no step-offs, no deformities. No tenderness, swelling, range of motion restrictions at right knee or right ankle joint, 2+ DP and PT pulse, 5 out of 5 motor and sensation to right lower extremity. No chest wall or abdominal tenderness, no trauma seen to other 3 extremities. Course 2 Vital Signs: Vital signs: Vital Signs Temperature 98.2 F 09/17/25 15:16 Pulse Rate 83 09/17/25 15:16 Respiratory Rate 16 09/17/25 15:16 Blood Pressure 131/68 09/17/25 15:16 Pulse Oximetry 92 09/17/25 15:16 Oxygen Delivery Me thod Room Air 09/17/25 04:00 Oxygen Flow Rate 1 09/17/25 00:00 MDM - Fall Medical Decision Making -ddx: Hip fracture, dislocation, MSK sprain, mechanical fall - Patient with 2 distinct falls and pains to his right hip, does have point tenderness to his right femoral neck region, mildly helped with Advil at home, agreeable to having something stronger, will give oxycodone, image right hip, femur and reassess. -patient with closed R fem neck fx on XR, given addtl pain medication with improvement, unchanged NV status, discussed case with Ortho and will likely go as third case tomorrow afternoon, admitted to the Hospitalist in stable condition. Lab Data 09/17/25 04:52 09/17/25 04:52 Radiology Impressions Femur X-Ray 09/15/25 23:06 IMPRESSION: Displaced right transcervical femoral neck fracture. Hip/Pelvis X-Ray 09/15/25 23:06 IMPRESSION: Displaced right transcervical femoral neck fracture. Chest X-Ray 09/15/25 23:26 IMPRESSION: No pneumonia. Pelvis X-Ray 09/16/25 11:43 IMPRESSION: Intact hip prosthesis. Laboratory Results WBC 3.64 10^3/uL (3.29-11.43) 09/15/25 23:36 RBC 4.33 10^6/uL (3.85-5.65) 09/15/25 23:36 Hgb 13.70 g/dL (11.27-16.99) 09/15/25 23:36 Hct 41.6 % (37-53) 09/15/25 23:36 MCV 96.1 fl (82-101) 09/15/25 23:36 MCH 31.6 pg (27-33) 09/15/25 23:36 MCHC 32.9 g/dL (30-55) 09/15/25 23:36 RDW 13.4 % (12.1-15.1) 09/15/25 23:36 Plt Count 151 10^3/cmm (157-399) L 09/15/25 23:36 MPV 9.4 fL (7.4-10.4) 09/15/25 23:36 Neut % (Auto) 48.3 % 09/15/25 23:36 Lymph % (Auto) 19.8 % 09/15/25 23:36 [place] % (Auto) 30.2 % 09/15/25 23:36 Eos % (Auto) 1.1 % 09/15/25 23:36 Baso % (Auto) 0.3 % 09/15/25 23:36 Neut # (Auto) 1.76 10^3/uL (1.8-7.7) L 09/15/25 23:36 Lymph # (Auto) 0.7 10^3/uL (0.8-4.8) L 09/15/25 23:36 [place] # (Auto) 1.1 10^3/uL (0.2-0.9) H 09/15/25 23:36 Eos # (Auto) 0.0 10^3/uL (0.0-0.8) 09/15/25 23:36 Baso # (Auto) 0.0 10^3/uL (0.0-0.1) 09/15/25 23:36 Nucleated RBC % (auto) 0 % 09/15/25 23:36 Nucleated RBCs # 0.0 /100WBC 09/15/25 23:36 PT 14.60 SECONDS (12.1-14.9) 09/15/25 23:36 INR 1.07 (0.8-1.2) 09/15/25 23:36 APTT 30.2 SECONDS (23.9-36.7) 09/15/25 23:36 Sodium 141 mmol/L (136-145) 09/15/25 23:36 Potassium 3.5 mmol/L (3.5-5.1) 09/15/25 23:36 Chloride 103 mmol/L (98-107) 09/15/25 23:36 Carbon Dioxide 29 mmol/L (22-29) 09/15/25 23:36 Anion Gap 12.5 (5-19) 09/15/25 23:36 BUN 26 mg/dL (8-23) H 09/15/25 23:36 Creatinine 0.7 mg/dL (0.7-1.2) 09/15/25 23:36 GFR Calculation 113.5 mL/min (90-130) 09/15/25 23:36 Glucose 162 mg/dL (65-115) H 09/15/25 23:36 Calculated Osmolality 300 mOsm/kg (285-295) H 09/15/25 23:36 Calcium 9.6 mg/dL (8.5-10.5) 09/15/25 23:36 All radiology interpretation(s) finalized by discharge Discharge Plan Discharge Patient Disposition: Admitted As Inpatient Admit Provider: Jose Power Clinical Impression: Closed displaced fracture of right femoral neck Condition: Stable Discharge Diet: Cardiac Discharge Activity: Resume usual activity Coding Level of Care Code ED [employer] Associate for John Patel
--- NOTE | 2025-09-15 23:26 | XRR_ITS ---
PROCEDURE INFORMATION: Exam: XR Chest Exam date and time: 09/15/2025 11:19 PM Age: 65 years old Clinical indication: Pre-operative exam; Respiratory screening exam; Prior surgery; Surgery date: 6+ months; Surgery type: Cholectomy; Additional info: Pre op for ortho TECHNIQUE: Imaging protocol: Radiologic exam of the chest. Views: 1 view. COMPARISON: CR XR chest 1V [id number] 07/10/2025 11:09 AM FINDINGS: Lungs: Unremarkable. No consolidation. Pleural spaces: Unremarkable. No pleural effusion. No pneumothorax. Heart/Mediastinum: Cardiomegaly. Bones/joints: Unremarkable. XR/XR chest 1V portable [id number] IMPRESSION: No pneumonia.
[2025-09-15 23:39] VITALS: BP 160/76; PULSE 65; O2SAT 97
--- NOTE | 2025-09-15 23:41 | ECG_ITS ---
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 Measurements Intervals [place] Rate: 64 P: 48 NM: 162 QRS: 18 QRSD: 106 T: -28 QT: 356 QTc: 367 Interpretive Statements SINUS RHYTHM INCOMPLETE RIGHT BUNDLE BRANCH BLOCK [90+ ms QRS DURATION, TERMINAL R IN V1/V2, 40+ ms S IN I/aVL/V4/V5/V6] SEPTAL MYOCARDIAL INFARCTION , OF INDETERMINATE AGE [40+ ms Q WAVE IN V1/V2] MODERATE T-WAVE ABNORMALITY, CONSIDER ANTERIOR ISCHEMIA [-0.1+ mV T-WAVE IN V3/V4] Compared to ECG 04/23/2019 14:03:50 Incomplete right bundle-branch block now present T-wave abnormality now present Possible ischemia now present Sinus bradycardia no longer present Myocardial infarct finding still present Electronically Signed On 09-16-2025 17:25:10 BAR WELDER by Ria Camarillo M.D. [email or web address]
[2025-09-15 23:45] LABS: Hematocrit 41.6 % (37-53); Hemoglobin 13.70 g/dL (11.27-16.99); Mean Corpuscular HGB Conc 32.9 g/dL (30-55); Mean Corpuscular Hemoglobin 31.6 pg (27-33); Mean Corpuscular Volume 96.1 fl (82-101); Nucleated Red Blood Cells % 0 %; Platelet Count 151 10^3/cmm (157-399); Red Blood Count 4.33 10^6/uL (3.85-5.65); White Blood Count 3.64 10^3/uL (3.29-11.43)
[2025-09-15 23:50] VITALS: RESP 16; O2SAT 96
[2025-09-15] MEDS: morphine 4 mg/mL SDV 1 mL 2 MG IVP (23:50)
[2025-09-16] VITALS (21 sets, daily range): BP systolic 128–178; BP diastolic 64–95; PULSE 66–94; RESP 14–19; TEMP 36.5–37.2; O2SAT 91–100; BMI 21.2
[2025-09-16 00:01] LABS: INR 1.07 (0.8-1.2); Prothrombin Time 14.60 SECONDS (12.1-14.9)
[2025-09-16 00:02] LABS: Partial Thromboplastin Time 30.2 SECONDS (23.9-36.7)
[2025-09-16 00:05] LABS: Anion Gap 12.5 (5-19); Blood Urea Nitrogen 26 mg/dL (8-23); Calcium 9.6 mg/dL (8.5-10.5); Carbon Dioxide 29 mmol/L (22-29); Chloride 103 mmol/L (98-107); Glucose 162 mg/dL (65-115); Osmolality Calculated 300 mOsm/kg (285-295); Potassium 3.5 mmol/L (3.5-5.1); Sodium 141 mmol/L (136-145)
--- NOTE | 2025-09-16 01:04 | PM.HP ---
Providers/Chief Complaint Primary Care Provider: Alejandro Osei DO Chief Complaint: fall right leg/knee injury History of Present Illness Kane Reynoso is a 65 year old male with history significant for mental delay who presents with complaints of right hip pain. History is present and provides history I am told that the patient fell on in the garage after slipping on some water. He was able to stand up immediately after the fall but sister noticed that his gait was unusual. However, on the evening of the current presentation, the patient did slip and fall in the bathroom. There were no prodromal symptoms prior to these falls. Patient is able to move the foot on the right side without difficulty. His current pain level is 7 out of 10 following oxycodone and morphine administration in the ED. Medications/Allergies Home Medications ?Medication ?Instructions ?Recorded ?Confirmed ?Last Taken ?Type cholecalciferol (vitamin D3) 50 50 mcg PO DAILY 05/22/25 09/07/25 06/30/25 History mcg (2,000 unit) tablet psyllium husk 3.4 gram/5.4 gram 1 tbsp PO BID 06/30/25 09/07/25 06/30/25 History oral powder (Metamucil) tamsulosin 0.4 mg capsule 0.4 mg PO DAILY 06/30/25 09/07/25 06/30/25 History vitamin B complex 1 tab PO DAILY 06/30/25 09/07/25 06/30/25 History omeprazole 40 mg capsule,delayed See Rx Instructions .Route 08/20/25 09/07/25 Unknown Rx release .COMPLEX #90 caps Allergies Allergy/AdvReac Type Severity Reaction Status Date / Time No Known Allergies Allergy Verified 09/07/25 08:52 PFSH Acute PFSH: Medical History Colon polyp Diverticulosis Diverticulitis Gastroesophageal reflux Developmental delay Surgical History S/P partial colectomy Sigmoid stricture Family History Denies family history of Anesthesia complication Bleeding disorder Social History Smoking and tobacco/nicotine status: never used tobacco/nicotine Alcohol intake: never Substance/Drug Use: never Caregiver/support person: Yes (guardian is Gunjan Reynoso (mother)) Lives independently: No Vitals/I&O/Wt Last Vital Signs Temp 98.6 F 09/15/25 22:50 Pulse 65 09/15/25 23:39 Resp 16 09/15/25 23:50 BP 160/76 09/15/25 23:39 Pulse Ox 96 09/15/25 23:50 O2 Del Method Room Air 09/15/25 23:39 Weight last 48 hrs Weight 54.431 kg Physical Exam Const: COMMON NORMALS: no acute distress and patient oriented x3 GENERAL APPEARANCE: cooperative ORIENTATION/CONSCIOUSNESS: Yes awake, Yes oriented to person, Yes oriented to place and Yes oriented to time HENMT: COMMON NORMALS: normocephalic HEAD & SCALP: normocephalic Eye: COMMON NORMALS: Equal, round and reactive pupils present and no scleral icterus PUPIL: Yes Equal, round and reactive pupils present Chest: COMMONS NORMALS: normal inspection of the chest Resp: COMMON NORMALS: normal respiratory effort and clear to auscultation bilaterally AUSCULTATION: clear to auscultation bilaterally Cardio: COMMON NORMALS: S1 normal heart sound present and S2 normal heart sound present; negative for No murmurs present (Cardio) HEART SOUNDS: S1 normal heart sound present and S2 normal heart sound present Extremity: OTHER: Able to move the bilateral feet without difficulty Neuro: COMMON NORMALS: patient oriented x3 SENSORIUM/ORIENTATION: Yes oriented to person, Yes oriented to place and Yes oriented to time Psych: COMMON NORMALS: mental status grossly normal Skin: COMMON NORMALS: no rashes or lesions noted GENERAL SKIN EXAM: no rashes or lesions noted Urinary Catheter Management: Garcia: Cath Placed During This Visit: no Data 09/15/25 23:36 09/15/25 23:36 A&P Assessment and plan 1. Closed fracture of neck of right femur, initial encounter: - ED physician has contacted Dr. Hernandez with orthopedic surgery. Plans for surgical intervention the morning of 09/16 - Perioperative evaluation: Patient is able to perform at least 4 METS without difficulty. He has no significant comorbid conditions. He is optimized for surgical intervention - Keep NPO - Start LR at 100cc/hr while NPO - Pain control with PRN morphine - Will need PT/OT eval following surgery and possibly short-term rehab. Defer to therapy recommendations 2. Developmental delay: 3. Injury due to fall, initial encounter: PDMP PDMP Reviewed: Not Reviewed Attestations Medical Necessity Statement*: Patient requires admission for greater than two midnights to manage right femoral hip fracture requiring surgical intervention Coding Level of Care Code Acute Code for Chg Fwd Diagnoses Closed fracture of neck of right femur, initial encounter S72.001A Encounter type: initial encounter Developmental delay R62.50 Injury due to fall, initial encounter W19.XXXA Encounter type: initial encounter
[2025-09-16] MEDS: morphine 4 mg/mL SDV 1 mL 2 MG IVP ×3 (04:32→18:16)
[2025-09-16] MEDS: pantoprazole 40 mg SDV IVP (06:29)
--- NOTE | 2025-09-16 08:08 | PM.CONSULT ---
Providers/Reason For Consult Consulting Physician/Specialty*: Hospitalist Reason for Consult*: Right femoral neck fracture Attending Physician: Дмитрий Downs MD Primary Care Provider: Aleajndro Osei DO History of Present Illness History of Present Illness Kane Reynoso is a 65 year old male Patient initially had a minor fall 3 days ago, lives with his sister and her , they have been noticing that he has been using his mom's walker since but has still been using his right foot, they got more concerned today when he had a another fall out of the walker and reported worsening pain at the right hip so they brought him here for evaluation. He has been taking Advil to mild relief, no previous orthopedic injuries to his right lower extremity, denies any numbness or tingling. Denies traumatic injuries anywhere else. Review of Systems General: Reports: 10 or more systems reviewed and unremarkable except in HPI and below Musc: Reports: joint pain Medications/Allergies Home Medications ?Medication ?Instructions ?Recorded ?Confirmed ?Last Taken ?Type cholecalciferol (vitamin D3) 50 50 mcg PO DAILY 05/22/25 09/07/25 06/30/25 History mcg (2,000 unit) tablet psyllium husk 3.4 gram/5.4 gram 1 tbsp PO BID 06/30/25 09/07/25 06/30/25 History oral powder (Metamucil) tamsulosin 0.4 mg capsule 0.4 mg PO DAILY 06/30/25 09/07/25 06/30/25 History vitamin B complex 1 tab PO DAILY 06/30/25 09/07/25 06/30/25 History omeprazole 40 mg capsule,delayed See Rx Instructions .Route 08/20/25 09/07/25 Unknown Rx release .COMPLEX #90 caps Allergies Allergy/AdvReac Type Severity Reaction Status Date / Time No Known Allergies Allergy Verified 09/07/25 08:52 Current Medications Generic Name Dose Route Start Last Admin Trade Name Freq PRN Reason Stop Dose Admin Enoxaparin Sodium 40 mg 09/16/25 01:50 09/16/25 02:17 Enoxaparin 40 Mg/0.4 Ml Syringe SUBCUT 40 mg Q24H BENJAMIN Administration Lactated Ringer's 1,000 mls @ 100 mls/hr 09/16/25 01:50 09/16/25 02:17 Lactated Ringers IV 100 mls/hr .Q10H BENJAMIN Administration Morphine Sulfate 2 mg 09/16/25 01:50 09/16/25 04:32 Morphine 4 Mg/Ml Sdv 1 Ml IVP 2 mg Q4H PRN Administration SEVERE PAIN Tamsulosin HCl 0.4 mg 09/16/25 05:00 09/16/25 04:26 Tamsulosin 0.4 Mg Capsule PO 0.4 mg DAILY BENJAMIN Administration Vitamin D 2,000 unit 09/16/25 05:00 09/16/25 04:26 Cholecalciferol (Vitamin D3) 1,000 Unit Tablet PO 2,000 unit DAILY BENJAMIN Administration PFSH Acute PFSH: Medical History (Updated 09/16/25 @ 01:12 by Jose Power MD) Colon polyp Diverticulosis Diverticulitis Gastroesophageal reflux Developmental delay Surgical History S/P partial colectomy Sigmoid stricture Family History Denies family history of Anesthesia complication Bleeding disorder Social History Smoking and tobacco/nicotine status: never used tobacco/nicotine Alcohol intake: never Substance/Drug Use: never Caregiver/support person: Yes (guardian is Gunjan Reynoso (mother)) Lives independently: No Vitals/I&O/Wt Last Vital Signs Temp 98.3 F 09/16/25 01:50 Pulse 66 09/16/25 01:50 Resp 17 09/16/25 04:32 BP 138/73 09/16/25 01:50 Pulse Ox 93 09/16/25 01:50 O2 Del Method Room Air 09/16/25 01:55 09/15/25 09/16/25 09/16/25 22:59 06:59 14:59 Output Total 50 / 50 Balance -50 / -50 Weight last 48 hrs Weight 127 lb 8 oz Weight 127 lb 8 oz Weight 120 lb Physical Exam Narrative: Right leg externally rotated and shortened Alert and oriented x 3 Head is normocephalic atraumatic Respirations are intact No evidence of any rashes or infection 5/5 strength in bilateral upper and lower extremities Sensation intact in all extremities Urinary Catheter Management: Garcia: Cath Placed During This Visit: no Data 09/15/25 23:36 09/15/25 23:36 A&P Assessment and plan 1. Closed fracture of neck of right femur, initial encounter: Plan to do right hip hemiarthroplasty today PDMP PDMP Reviewed: Not Reviewed Coding Level of Care Code Acute Code for Chg Fwd Diagnoses Closed fracture of neck of right femur, initial encounter S72.001A Encounter type: initial encounter
--- NOTE | 2025-09-16 09:07 | ANES.PREANE2 ---
Pre-Anesthetic Assessment Height/Weight: Height 1.65 m Weight 57.833 kg Temp Pulse Resp BP Pulse Ox O2 Del Method 98.9 F 72 18 128/65 93 Room Air 09/16/25 09:04 09/16/25 09:04 09/16/25 09:04 09/16/25 09:04 09/16/25 09:04 09/16/25 09:04 Operation Date: 09/16/25 10:35 Proposed Procedures p Hemiarthroplasty Hip Bipolar Arthroplasty(Right) - Chriss Hernandez, DO Familial anesthetic complications: none Was Beta Josey taken within 24 hours: N/A Was Clonidine taken within 24 hours: N/A Last intake: > 8 hrs Social No alcohol and No tobacco Exam alert, oriented x 3, clear to auscultation bilaterally and regular rate & rhythm Airway Mallampati: Class II GI Gastroesophageal Reflux Disease Metabolic Diabetes Mellitus Anesthetic Plan ASA status: 3 Anesthesia: General Risk of > 500 ml blood loss (7ml/kg in children): No Medications/Allergies Home Medications ?Medication ?Instructions ?Recorded ?Confirmed ?Last Taken ?Type cholecalciferol (vitamin D3) 50 50 mcg PO DAILY 05/22/25 09/07/25 06/30/25 History mcg (2,000 unit) tablet psyllium husk 3.4 gram/5.4 gram 1 tbsp PO BID 06/30/25 09/07/25 06/30/25 History oral powder (Metamucil) tamsulosin 0.4 mg capsule 0.4 mg PO DAILY 06/30/25 09/07/25 06/30/25 History vitamin B complex 1 tab PO DAILY 06/30/25 09/07/25 06/30/25 History omeprazole 40 mg capsule,delayed See Rx Instructions .Route 08/20/25 09/07/25 Unknown Rx release .COMPLEX #90 caps Allergies Allergy/AdvReac Type Severity Reaction Status Date / Time No Known Allergies Allergy Verified 09/07/25 08:52 Current Medications Generic Name Dose Route Start Last Admin Trade Name Freq PRN Reason Stop Dose Admin Enoxaparin Sodium 40 mg 09/16/25 01:50 09/16/25 02:17 Enoxaparin 40 Mg/0.4 Ml Syringe SUBCUT 40 mg Q24H BENJAMIN Administration Lactated Ringer's 1,000 mls @ 100 mls/hr 09/16/25 01:50 09/16/25 02:17 Lactated Ringers IV 100 mls/hr .Q10H BENJAMIN Administration Morphine Sulfate 2 mg 09/16/25 01:50 09/16/25 04:32 Morphine 4 Mg/Ml Sdv 1 Ml IVP 2 mg Q4H PRN Administration SEVERE PAIN Tamsulosin HCl 0.4 mg 09/16/25 05:00 09/16/25 04:26 Tamsulosin 0.4 Mg Capsule PO 0.4 mg DAILY BENJAMIN Administration Vitamin D 2,000 unit 09/16/25 05:00 09/16/25 04:26 Cholecalciferol (Vitamin D3) 1,000 Unit Tablet PO 2,000 unit DAILY BENJAMIN Administration PFSH Anesthesia Medical History (Updated 09/16/25 @ 01:12 by Jose Power MD) Colon polyp Diverticulosis Diverticulitis Gastroesophageal reflux Developmental delay Surgical History S/P partial colectomy Sigmoid stricture Family History Denies family history of Anesthesia complication Bleeding disorder Social History Smoking and tobacco/nicotine status: never used tobacco/nicotine Alcohol intake: never Substance/Drug Use: never Caregiver/support person: Yes (guardian is Gunjan Reynoso (mother)) Lives independently: No Data Anesthesia 09/15/25 23:36 09/15/25 23:36 Short CBC 09/15/25 Range/Units 23:36 WBC 3.64 (3.29-11.43) 10^3/uL Hgb 13.70 (11.27-16.99) g/dL Hct 41.6 (37-53) % MCV 96.1 (82-101) fl Plt Count 151 L (157-399) 10^3/cmm Neut % (Auto) 48.3 % Neut # (Auto) 1.76 L (1.8-7.7) 10^3/uL BMP 09/15/25 23:36 Sodium 141 Potassium 3.5 Chloride 103 Carbon Dioxide 29 BUN 26 H Creatinine 0.7 Glucose 162 H Calcium 9.6 Coags 09/15/25 23:36 PT 14.60 INR 1.07 APTT 30.2
[2025-09-16] MEDS: ceFAZolin 2,000 mg SDV 2000 MG IVP ×2 (10:10→18:00)
--- NOTE | 2025-09-16 11:43 | XRR_ITS ---
PROCEDURE INFORMATION: Exam: XR Pelvis Exam date and time: 09/16/2025 2:08 PM Age: 65 years old Clinical indication: Hip pain; Right hip; Prior surgery; Surgery date: Post-operative (0-2 days); Surgery type: RT hip yvonne; Additional info: Post op RT hip hemiarthroplasty; Low ap pelvis per Dr. Hernandez TECHNIQUE: Imaging protocol: Radiologic exam of the pelvis. Views: 1 or 2 view. COMPARISON: CR XR hip RT 2-3V wo/w pel* [id number] 09/15/2025 11:10 PM FINDINGS: Bones/joints: Status post hip arthroplasty in anatomic alignment. Minimal fracture seen along the medial aspect of the proximal femur adjacent to the neck of the prosthesis. Soft tissue swelling and gas consistent with recent surgery. Soft tissues: See Bones/joints finding. XR/XR pelvis 1-2V* [id number] IMPRESSION: Intact hip prosthesis.
--- NOTE | 2025-09-16 11:46 | P.OP_ITS ---
Operative Report Date of procedure: September 16, 2025 Pre-op diagnosis: Right femoral neck fracture Post-op diagnosis: same Procedure done: Right hip hemiarthroplasty Surgeon: Chriss Hernandez DO Estimated blood loss (mL): 50 Procedure: Right hip hemiarthroplasty Patient was brought to the operative suite after undergoing anesthesia patient was placed in the lateral decubitus position. All areas of impingement were well-padded. Patient was prepped and draped in the normal sterile fashion. Skin incision was made over the right hip. The IT band was split. Modified Marcelo approach was used. The abductors and the capsule were taken anteriorly. The fracture was identified. Femoral neck cut was made using a saw approximately 1 fingerbreadth above the lesser trochanter. The femoral head was then removed. Measured to be 52. The attention was then brought to the femur. The box order person was used. The canal finder was used. The lateralizer was used. And then the canal was broached to 6. A size 6 stem from [place] with a negative 4 neck length and a 52 mm head were then reduced. He felt to be stable in all ranges of motion. Intraoperative x-ray was taken to confirm. Wounds were irrigated and wound was closed in a layered fashion the abductors and the capsule were closed with FiberWire. The IT band was closed with 0 Vicryl. Skin was closed with 2-0 Vicryl and geri. Sterile dressings were applied and patient was transferred to the PACU in stable condition.
--- NOTE | 2025-09-16 12:06 | ANE.PACU2 ---
Inpatient post-anesthesia follow up: Airway intact: Yes Vital signs: Temperature 98.9 F Pulse Rate 72 Respiratory Rate 18 Blood Pressure 128/65 Pulse Oximetry 93 Oxygen Delivery Me thod Room Air Oxygen Flow Rate 6 Fraction of Inspir ed Oxygen Hydration adequate: Yes Nausea and vomiting: No Pain level: 1 Mental status: Baseline
[2025-09-16] MEDS: oxyCODONE 5 mg IR Tab/Cap PO (15:42)
[2025-09-16] MEDS: psyllium powder Pkt 1 PACKET PO (18:00)
[2025-09-17] VITALS (8 sets, daily range): BP systolic 129–156; BP diastolic 63–78; PULSE 73–83; RESP 16–18; TEMP 36.8–37.1; O2SAT 91–95; BMI 23.3
[2025-09-17] MEDS: oxyCODONE 5 mg IR Tab/Cap PO ×2 (01:38→09:43)
[2025-09-17] MEDS: ceFAZolin 2,000 mg SDV 2000 MG IVP ×2 (01:41→09:44)
[2025-09-17] MEDS: psyllium powder Pkt 1 PACKET PO (05:02)
[2025-09-17 05:10] LABS: Hematocrit 32.3 % (37-53); Hemoglobin 10.60 g/dL (11.27-16.99); Mean Corpuscular HGB Conc 32.8 g/dL (30-55); Mean Corpuscular Hemoglobin 30.9 pg (27-33); Mean Corpuscular Volume 94.2 fl (82-101); Nucleated Red Blood Cells % 0 %; Platelet Count 155 10^3/cmm (157-399); Red Blood Count 3.43 10^6/uL (3.85-5.65); White Blood Count 4.34 10^3/uL (3.29-11.43)
[2025-09-17 05:30] LABS: Anion Gap 8.5 (5-19); Blood Urea Nitrogen 14 mg/dL (8-23); Calcium 8.2 mg/dL (8.5-10.5); Carbon Dioxide 30 mmol/L (22-29); Chloride 103 mmol/L (98-107); Glucose 137 mg/dL (65-115); Osmolality Calculated 289 mOsm/kg (285-295); Potassium 3.5 mmol/L (3.5-5.1); Sodium 138 mmol/L (136-145)
--- NOTE | 2025-09-17 09:55 | PC.CHAP ---
Pastoral Care Encounter/Spiritual Assessment Type of Contact [] Declined progressive assembler and fitter visit [] Patient/Family/Request visit [] Outpatient visit [] Follow-up visit [] Physician referral [] Code/Alert [x] Routine visit [] Staff referral [] Actively dying [] Patient sleeping [] Family support [] [] Out of room [] Palliative care [] [x] Receiving care in room [] Pre-surgical visit [] Trauma [] Long length of stay [] ICU visit [] Other: Relational/Emotional Strength [] Patient feels connected with others/family/visitors/staff [] Distress [] Loneliness/isolation [] Abandonment Spirituality of Patient [] Person of [place] [] Attends Gnosticism of their [place] [] Believes in Prayer [] Reads Bible or Jehovah'S Witness materials [] There are Spiritual issues to be addressed Carpet Cleaning Technician Interventions [x] Prayer [] Active listening [] Non-anxious presence [] Spiritual/emotional support [] Crisis/trauma care [] Spiritual counseling [] Bereavement support [] Provided bereavement packet [] Provided Bible/devotional materials [] Provided toy/stuffed animal, coloring book to patient or family member [] Provided Communion [] Anointing/Chicken [] Salvation [] Completed spiritual assessment [] Other: Impact on Illness or Injury [] Angry [] Fearful [] Anxious [] Often cries [] Exhaustion [] Unable to work [] Unable to attend confucianist [] Unable to walk/stand [] Unable to read [] Unable to drive [] Unable to eat/drink [] Unable to sleep [] Unable to be with family [] Patient intubated [] Other: Summary Time spent with patient
[2025-09-17 11:19] LABS: Glucose Urine UA Negative (Normal); Nitrate Urine Negative (Negative); Specific Gravity, Urine 1.020 (1.005-1.030)
[2025-09-17 11:25] LABS: Add Urine Microscopic? YES
--- NOTE | 2025-09-17 13:28 | P.PN_ITS ---
Subjective 2 Subjective: Patient postop day #1 right hip hemiarthroplasty doing well no complaints of pain. Sitting in the chair family at bedside Vitals/I&O/Wt Last Vital Signs Temp 98.2 F 09/17/25 11:33 Pulse 83 09/17/25 11:33 Resp 16 09/17/25 11:33 BP 131/68 09/17/25 11:33 Pulse Ox 92 09/17/25 11:33 O2 Del Method Room Air 09/17/25 04:00 O2 Flow Rate 1 09/17/25 00:00 09/16/25 09/17/25 09/17/25 22:59 06:59 14:59 Intake Total 600 / 2180 928.333 / 3108.333 1590 / 1590 Output Total 500 / 525 425 / 950 Balance 100 / 1655 503.333 / 2158.333 1590 / 1590 Weight last 48 hrs Weight 140 lb 8 oz Weight 127 lb 8 oz Weight 127 lb 8 oz Weight 120 lb Physical Exam 2 Narrative: Dressing clean dry and intact Urinary Catheter Management: Garcia: Cath Placed During This Visit: yes, but has since been removed by the nurse Reason for Continuing Indwelling Catheter: Required Immobilization for Trauma or Surgery or Anesthesia Urinary Catheter Date of Insertion: 09/16/25 Urinary Catheter Time of Insertion: 10:25 Date Urinary Catheter Removed: 09/16/25 Time Urinary Catheter Discontinued: 14:00 Data 09/17/25 04:52 09/17/25 04:52 A&P Assessment and plan 1. Closed fracture of neck of right femur, initial encounter: Postop day #1 right hip hemiarthroplasty Discharge planning PDMP PDMP Reviewed: Not Reviewed Attestations 2 Medical Necessity Statement*: Per primary service Coding Level of Care Code Acute Code for Chg Fwd Diagnoses Closed fracture of neck of right femur, initial encounter S72.001A Encounter type: initial encounter
--- NOTE | 2025-09-17 14:07 | PM.DCS ---
Discharge Providers Date of Admission: 09/16/25 00:39 Date of Discharge: September 17, 2025 Attending Provider at Admission: Jose Power MD Attending Provider at Discharge: Edvin Dhillon MD Primary Care Provider: Alejandro Osei DO Diagnoses at Discharge Discharge Diagnosis 1. Closed fracture of neck of right femur, initial encounter: Reason for Visit Reason for Visit: fall right leg/knee injury Hospital Course Hospital Course This is a 65-year-old male with a past medical history of developmental delay, who presents to [facility] for slip and fall Patient was admitted to [facility] for right hip fracture status post right hip hemiarthroplasty - Patient will be discharged home to the care of his family - Discharged on aspirin 81 mg for DVT prophylaxis - Discharged on oxycodone for pain, to use sparingly for pain - Follow-up with primary care - Follow-up with Dr. Hernandez Physical Exam Const: COMMON NORMALS: no acute distress GENERAL APPEARANCE: cooperative ORIENTATION/CONSCIOUSNESS: Yes awake, Yes oriented to person and Yes oriented to place; not oriented to time Resp: COMMON NORMALS: normal respiratory effort, No retractions, No use of accessory muscles and clear to auscultation bilaterally AUSCULTATION: clear to auscultation bilaterally Cardio: COMMON NORMALS: regular rate, regular rhythm, S1 normal heart sound present and S2 normal heart sound present RATE: regular rate RHYTHM: regular rhythm HEART SOUNDS: S1 normal heart sound present and S2 normal heart sound present GI: COMMON NORMALS: Normal to inspection, nondistended, normoactive bowel sounds present and non-tender Extremity: COMMON NORMALS: no pedal edema Neuro: SENSORIUM/ORIENTATION: Yes oriented to person, Yes oriented to place and No oriented to time Psych: COMMON NORMALS: mental status grossly normal Urinary Catheter Management: Garcia: Cath Placed During This Visit: yes, but has since been removed by the nurse Reason for Continuing Indwelling Catheter: Required Immobilization for Trauma or Surgery or Anesthesia Urinary Catheter Date of Insertion: 09/16/25 Urinary Catheter Time of Insertion: 10:25 Date Urinary Catheter Removed: 09/16/25 Time Urinary Catheter Discontinued: 14:00 Discharge Data Studies Completed and Pending Completed Studies During Hospitalization Category Date Time Status XR chest 1V portable [id number] Stat Exams 09/15/25 23:26 Completed XR femur RT min 2V* [id number] Stat Exams 09/15/25 23:06 Completed XR hip RT 2-3V wo/w pel* [id number] Stat Exams 09/15/25 23:06 Completed XR pelvis 1-2V* [id number] Routine Exams 09/16/25 11:43 Completed Radiology Impressions Femur X-Ray 09/15/25 23:06 IMPRESSION: Displaced right transcervical femoral neck fracture. Hip/Pelvis X-Ray 09/15/25 23:06 IMPRESSION: Displaced right transcervical femoral neck fracture. Chest X-Ray 09/15/25 23:26 IMPRESSION: No pneumonia. Pelvis X-Ray 09/16/25 11:43 IMPRESSION: Intact hip prosthesis. Laboratory Results WBC 4.34 10^3/uL (3.29-11.43) 09/17/25 04:52 RBC 3.43 10^6/uL (3.85-5.65) L 09/17/25 04:52 Hgb 10.60 g/dL (11.27-16.99) L 09/17/25 04:52 Hct 32.3 % (37-53) L 09/17/25 04:52 MCV 94.2 fl (82-101) 09/17/25 04:52 MCH 30.9 pg (27-33) 09/17/25 04:52 MCHC 32.8 g/dL (30-55) 09/17/25 04:52 RDW 13.2 % (12.1-15.1) 09/17/25 04:52 Plt Count 155 10^3/cmm (157-399) L 09/17/25 04:52 MPV 10.1 fL (7.4-10.4) 09/17/25 04:52 Neut % (Auto) 48.6 % 09/17/25 04:52 Lymph % (Auto) 23.3 % 09/17/25 04:52 [place] % (Auto) 27.4 % 09/17/25 04:52 Eos % (Auto) 0.5 % 09/17/25 04:52 Baso % (Auto) 0.2 % 09/17/25 04:52 Neut # (Auto) 2.11 10^3/uL (1.8-7.7) 09/17/25 04:52 Lymph # (Auto) 1.0 10^3/uL (0.8-4.8) 09/17/25 04:52 [place] # (Auto) 1.2 10^3/uL (0.2-0.9) H 09/17/25 04:52 Eos # (Auto) 0.0 10^3/uL (0.0-0.8) 09/17/25 04:52 Baso # (Auto) 0.0 10^3/uL (0.0-0.1) 09/17/25 04:52 Nucleated RBC % (auto) 0 % 09/17/25 04:52 Nucleated RBCs # 0.0 /100WBC 09/17/25 04:52 PT 14.60 SECONDS (12.1-14.9) 09/15/25 23:36 INR 1.07 (0.8-1.2) 09/15/25 23:36 APTT 30.2 SECONDS (23.9-36.7) 09/15/25 23:36 Sodium 138 mmol/L (136-145) 09/17/25 04:52 Potassium 3.5 mmol/L (3.5-5.1) 09/17/25 04:52 Chloride 103 mmol/L (98-107) 09/17/25 04:52 Carbon Dioxide 30 mmol/L (22-29) H 09/17/25 04:52 Anion Gap 8.5 (5-19) 09/17/25 04:52 BUN 14 mg/dL (8-23) 09/17/25 04:52 Creatinine 0.6 mg/dL (0.7-1.2) L 09/17/25 04:52 GFR Calculation 135.6 mL/min (90-130) H 09/17/25 04:52 Glucose 137 mg/dL (65-115) H 09/17/25 04:52 Calculated Osmolality 289 mOsm/kg (285-295) 09/17/25 04:52 Calcium 8.2 mg/dL (8.5-10.5) L 09/17/25 04:52 Urine Color Yellow (Yellow) 09/17/25 11:01 Urine Appearance Clear (CLEAR) 09/17/25 11:01 Urine pH 6.0 (5-7) 09/17/25 11:01 Ur Specific [place] 1.020 (1.005-1.030) 09/17/25 11:01 Urine Protein 1+ (Negative) A 09/17/25 11:01 Urine Glucose (UA) Negative (Normal) 09/17/25 11:01 Urine Ketones Negative (Negative) 09/17/25 11:01 Urine Blood Trace (Negative) A 09/17/25 11:01 Urine Nitrate Negative (Negative) 09/17/25 11:01 Urine Bilirubin Negative (Negative) 09/17/25 11:01 Urine Urobilinogen 1.0 mg/dL (Negative) 09/17/25 11:01 Ur Leukocyte Esterase Negative (Negative) 09/17/25 11:01 Urine RBC 0-2 /hpf (0-2) 09/17/25 11:01 Urine WBC 0-5 /hpf (0-5) 09/17/25 11:01 Ur Squamous Epith Cells 0-5 /hpf (0-5) 09/17/25 11:01 Amorphous Sediment Not Reportable 09/17/25 11:01 Urine Bacteria None seen /hpf (NONE) 09/17/25 11:01 Hyaline Casts 4.52 /lpf 09/17/25 11:01 Vitals Last Vital Signs Temp 98.2 F 09/17/25 11:33 Pulse 83 09/17/25 11:33 Resp 16 09/17/25 11:33 BP 131/68 09/17/25 11:33 Pulse Ox 92 09/17/25 11:33 O2 Del Method Room Air 09/17/25 04:00 O2 Flow Rate 1 09/17/25 00:00 Discharge Plan Discharge Patient Disposition: Home Condition: Stable Prescriptions: New oxycodone 5 mg Tablet 5 mg PO Q4H PRN (Reason: Moderate Pain) 5 Days Qty: 30 0RF aspirin 81 mg tablet 81 mg PO DAILY 35 Days Qty: 35 0RF Continued cholecalciferol (vitamin D3) 50 mcg (2,000 unit) tablet 50 mcg PO DAILY omeprazole 40 mg capsule,delayed release(DR/EC) See Rx Instructions .ROUTE .COMPLEX Qty: 90 3RF Dose Instruction: TAKE ONE CAPSULE BY MOUTH ONCE DAILY Rx Instructions: TAKE ONE CAPSULE BY MOUTH ONCE DAILY vitamin B complex Tablet 1 tab PO DAILY tamsulosin 0.4 mg capsule 0.4 mg PO DAILY Metamucil 3.4 gram/5.4 gram Powder 1 tbsp PO BID Rx Instructions: mix into at least 8 oz of water or juice before administering Insurance Service Representative OK for DC: Orthopedics Discharge Order = DC NOW: Discharge Order (Routine); Ordered 09/17/25 Ordered By: Edvin Dhillon Referrals: Alejandro Osei DO [Primary Care Provider, Family Practice] - 09/27/25 10:30 am Chriss Hernandez DO [Physician, Orthopedics] - 10/02/25 1:30 pm Referral Note: Discharge Diet: Cardiac Discharge Activity: Resume usual activity Patient Instructions: Acute Wound Care (DC), Opioid Safety, Post Anesthesia Care, Patient Portal & [place] Instructions Activity Restrictions/Additional Instructions: You are being discharged from the hospital today during which time you have been under the care of Dr. Hernandez. You had a femoral neck fracture. You were treated for this injury with hemiarthroplasty. You may resume you normal diet (including any special diets as directed by your primary doctor) as well as your home medications. You should follow up with you primary doctor if you have any questions regarding medication you took prior to your stay in the hospital. You may take your pain medication as prescribed. After the first few days, take your pain medication as needed. Do not drive or drink alcohol while taking your pain medication. Your injury may increase your risk of developing a blood clot,or DVT, in your arm or leg. This could potentially dislodge and travel to your lungs and become a life threatening condition called apulmonary embolus,or PE. You have been prescribed aspirin to be taken to prevent this. Frequent movement of the legs will also help prevent this from occurring. If you develop any new or worsening cough, chestpain, bloody sputum or shortness of breath, call 911 or go to the EmergencyRoom. Always keep your surgical incision/dressing clean and dry. If you experience increasing pain at your incision site, redness, swelling, increasing discharge, foul odors, or fevers (greater than 100.4), night sweats or chills you should call the office at the above number. If you feel this is an emergency you should be evaluated in the Emergency Department of a nearby hospital. Orthopedic Patient Instructions Summary: Weight Bearing: Weight-bear as tolerated Activity: As tolerated with anterior hip precautions. Diet: Regular. Wound Care: Keep dressing clean and dry. Anticoagulation: Aspirin Pain Medication: Take only as needed. Ice, rest and elevation will be of great benefit. Please plan to follow-up wlyinka Hernandez in 2 weeks. You will need to call the clinic [phone] to schedule this visit. Thank you far allowing me to participate in your care. Do not hesitate to call the office with any questions or concerns. Do not drive or operate heavy machinery or drink while taking medication Discharge Attestations Time Spent in Discharge Care*: greater than 30 min Quality Metrics Clinical Quality Measures [ No reported AMI, CVA or VTE this stay] Coding Level of Care Code 74626 Total time (in minutes) for Discharge: 45 Diagnoses Closed fracture of neck of right femur, initial encounter S72.001A Encounter type: initial encounter
== END 2025-09-17 15:17 | disposition home or self-care (01) | DRG 522 ==
LOC: ER 23:16 → MEDSURG 09-16 01:06
PROVIDERS: Orthopaedic Surgery; Admitting Provider Family Medicine; Emergency Provider Student in an Organized Health Care Education/Training Program; PCP Family Medicine; Visit Provider Family Medicine
PROC: 0SRR0JZ Replacement of Right Hip Joint, Femoral Surface with Synthetic Substitute, Open Approach (ICD-10-PCS; principal; 2025-09-16 10:05)
DX: S72.031A Displaced midcervical fracture of right femur, initial encounter for closed fracture (principal); W01.0XXA Fall on same level from slipping, tripping and stumbling without subsequent striking against object, initial encounter; K21.9 Gastro-esophageal reflux disease without esophagitis; E11.9 Type 2 diabetes mellitus without complications; R62.50 Unspecified lack of expected normal physiological development in childhood; Y92.002 Bathroom of unspecified non-institutional (private) residence as the place of occurrence of the external cause
CPT/HCPCS: 36415; 51702; 71045; 72170; 73502; 73552; 80048; 81001; 85025; 85610; 85730; 93005; 96372; 96374; 97116; 97161; 97165; 99285; C1776; J0330; J0690; J1100; J1650; J2270; J2405; J2470; J2704; J3010; J3490; J7120; J9999

== ENCOUNTER → 2025-10-02 13:47 | Outpatient (BNVA) | payer MEDICARE, MEDICAID, SELFPAY | PROVIDERS: PCP Family Medicine; Visit Provider Orthopaedic Surgery | DX: Z98.890 Other specified postprocedural states (principal); Z96.641 Presence of right artificial hip joint | CPT/HCPCS: 73502; 99024 ==